=== PATIENT | female | born 1965 | race Caucasian/White ===

== ENCOUNTER 2018-07-14 16:30 | Emergency (ER) | payer MEDICAID ==
[~2018-07-14] VITALS: Ht 165.1 cm; Wt 90.0 kg
[~2018-07-14 16:30] MED LIST: ALBU18HF2; CYCL-1; HYDR-3972; INHA1EAC; LISI-600; METF500T PO
[2018-07-14 17:07] LABS: BASOPHILS % (AUTO) 0.5 % (0-1); EOSINOPHILS # (AUTO) 0.1 X10'3 (0-0.9); EOSINOPHILS % (AUTO) 2.4 % (0-6); HEMATOCRIT 40.8 % (35.0-45.0); HEMOGLOBIN 13.6 g/dl (12.0-16.0); LYMPHOCYTES # (AUTO) 1.9 X10'3 (1.1-4.8); LYMPHOCYTES % (AUTO) 35.1 % (21-51); MEAN CORPUSCULAR HEMOGLOBIN 31.5 PG (27.0-31.0); MEAN CORPUSCULAR HGB CONC 33.5 % (33.0-36.5); MEAN CORPUSCULAR VOLUME 94.1 FL (78-98); MEAN PLATELET VOLUME 8.7 FL (7.4-10.4); MONOCYTES # (AUTO) 0.5 X10'3 (0-0.9); MONOCYTES % (AUTO) 8.3 % (2-12); NEUTROPHILS % (AUTO) 53.7 % (42-75); PLATELET COUNT 135 X10'3 (140-440); RED BLOOD COUNT 4.33 X10'6 (4.20-5.60); RED CELL DISTRIBUTION WIDTH 13.8 % (11.5-14.5); WHITE BLOOD COUNT 5.5 X10'3 (4.5-11.0)
[2018-07-14 17:23] LABS: INR 1.1 INR; PARTIAL THROMBOPLASTIN TIME 27 SECONDS (22-32)
[2018-07-14 17:27] LABS: ALANINE AMINOTRANSFERASE 125 U/L (12-78); ALBUMIN/GLOBULIN RATIO 0.6 (1.1-1.5); ALKALINE PHOSPHATASE 196 IU/L (46-116); ANION GAP 6 (8-16); ASPARTATE AMINO TRANSFERASE 109 U/L (10-37); BILIRUBIN,TOTAL 0.5 MG/DL (0.1-1.0); BLOOD UREA NITROGEN 12 MG/DL (7-18); BUN/CREATININE RATIO 14.6 (6.6-38.0); CALCIUM 8.9 MG/DL (8.5-10.1); CHLORIDE 103 MMOL/L (99-107); CREATININE 0.82 MG/DL (0.40-0.90); GLUCOSE 212 MG/DL (70-104); POTASSIUM 3.4 MMOL/L (3.5-5.1); SODIUM 138 MMOL/L (135-145); TOTAL CARBON DIOXIDE 28.6 MMOL/L (24-32); TOTAL PROTEIN 8.3 G/DL (6.4-8.2); eGFR 74 ML/MIN
[2018-07-14 19:34] VITALS: BP 146/82
[2018-07-14 19:46] LABS: URINE AMPHETAMINE SCREEN POSITIVE (Neg); URINE BARBITUATE SCREEN NEGATIVE (Neg); URINE BENZODIAZEPINES SCREEN NEGATIVE (Neg); URINE CANNABINOID SCREEN NEGATIVE (Neg); URINE COCAINE SCREEN NEGATIVE (Neg); URINE METHADONE SCREEN NEGATIVE (Neg); URINE OPIATE SCREEN NEGATIVE (Neg); URINE PHENCYCLIDINE SCREEN NEGATIVE (Neg)
[2018-07-14] MEDS ORDERED: iohexol 350MG/ML 100ml bottle IV ONE (20:57)
[2018-07-14] MEDS ORDERED: MESSAGE TO NURSING PO NR (21:30)
[2018-07-14] MEDS ORDERED: ALBU8HFA PO (22:33)
== END 2018-07-14 23:02 | disposition home or self-care (01) ==
LOC: ER 16:31
DX: J40 Bronchitis, not specified as acute or chronic (principal); M21.372 Foot drop, left foot; I10 Essential (primary) hypertension; E11.9 Type 2 diabetes mellitus without complications; G89.29 Other chronic pain; Z90.49 Acquired absence of other specified parts of digestive tract; Z98.890 Other specified postprocedural states; Z88.0 Allergy status to penicillin; Z88.5 Allergy status to narcotic agent; Z88.8 Allergy status to other drugs, medicaments and biological substances; Z79.899 Other long term (current) drug therapy
CPT/HCPCS: 36415; 71045; 71275; 80053; 80305; 84484; 85025; 85379; 85610; 85730; 93005; 93971; 99284; Q9967

== ENCOUNTER 2018-12-01 23:12 | Emergency (ER) | payer MEDICAID ==
[~2018-12-01] VITALS: Ht 162.6 cm; Wt 82.3 kg
[2018-12-01 23:16] VITALS: BP 176/105
[2018-12-02 00:06] LABS: ALANINE AMINOTRANSFERASE 131 U/L (12-78); ALBUMIN 3.2 G/DL (3.4-5.0); ALBUMIN/GLOBULIN RATIO 0.7 (1.1-1.5); ALKALINE PHOSPHATASE 154 IU/L (46-116); ANION GAP 7 (8-16); ASPARTATE AMINO TRANSFERASE 109 U/L (10-37); BILIRUBIN,TOTAL 0.9 MG/DL (0.1-1.0); BLOOD UREA NITROGEN 15 MG/DL (7-18); BUN/CREATININE RATIO 16.7 (6.6-38.0); CALCIUM 9.5 MG/DL (8.5-10.1); CHLORIDE 102 MMOL/L (99-107); GLUCOSE 175 MG/DL (70-104); POTASSIUM 3.1 MMOL/L (3.5-5.1); SODIUM 139 MMOL/L (135-145); TOTAL CARBON DIOXIDE 30.2 MMOL/L (24-32); TOTAL PROTEIN 8.1 G/DL (6.4-8.2); eGFR 66 ML/MIN
[2018-12-02 01:57] LABS: LIPASE 99 U/L (73-393)
== END 2018-12-02 02:39 | disposition left against medical advice (07) ==
LOC: ER 23:13
DX: R11.2 Nausea with vomiting, unspecified (principal); R10.9 Unspecified abdominal pain; Z53.21 Procedure and treatment not carried out due to patient leaving prior to being seen by health care provider
CPT/HCPCS: 36415; 80053; 83690

== ENCOUNTER 2019-06-18 15:41 | Inpatient (IN) | payer MEDICAID ==
[~2019-06-18] VITALS: Ht 167.6 cm; Wt 100.3 kg
[2019-06-18] MEDS ORDERED: normal saline 1000ML IV soln IV ONE (16:25)
[2019-06-18] MEDS ORDERED: pantoprazole IV 80 MG in normal saline 100ml IV soln 100 ML IV ONE (16:25)
[2019-06-18] MEDS ORDERED: octreotide inj. 1,250 MCG in normal saline 250ml IV soln 250 ML IV SCH (16:25)
--- NOTE | 2019-06-18 16:28 | NUR ---
PT VERY DIFFICULT IVS, PICC RN PAGED, AT BEDSIDE AT THIS TIME ATTEMPTING TO PLACE PIV.
[2019-06-18] MEDS ORDERED: pantoprazole IV 40 MG in normal saline 100ml IV soln 100 ML IV ONE (16:37)
[2019-06-18 17:01] LABS: ALANINE AMINOTRANSFERASE 110 U/L (12-78); ALBUMIN 2.3 G/DL (3.4-5.0); ALBUMIN/GLOBULIN RATIO 0.6 (1.1-1.5); ALKALINE PHOSPHATASE 140 IU/L (46-116); ANION GAP 12 (8-16); ASPARTATE AMINO TRANSFERASE 116 U/L (10-37); BASOPHILS # (AUTO) 0.1 X10'3 (0-0.2); BASOPHILS % (AUTO) 1.2 % (0-1); BILIRUBIN,TOTAL 0.5 MG/DL (0.1-1.0); BLOOD UREA NITROGEN 18 MG/DL (7-18); BUN/CREATININE RATIO 13.1 (6.6-38.0); CALCIUM 8.5 MG/DL (8.5-10.1); CHLORIDE 107 MMOL/L (99-107); CREATININE 1.37 MG/DL (0.40-0.90); EOSINOPHILS # (AUTO) 0.3 X10'3 (0-0.9); EOSINOPHILS % (AUTO) 2.2 % (0-6); GLUCOSE 315 MG/DL (70-104); HEMATOCRIT 23.3 % (35.0-45.0); HEMOGLOBIN 7.8 g/dl (12.0-16.0); LIPASE 127 U/L (73-393); LYMPHOCYTES # (AUTO) 5.2 X10'3 (1.1-4.8); LYMPHOCYTES % (AUTO) 43.4 % (21-51); MEAN CORPUSCULAR HEMOGLOBIN 32.2 PG (27.0-31.0); MEAN CORPUSCULAR HGB CONC 33.4 g/dL (33.0-36.5); MEAN CORPUSCULAR VOLUME 96.4 FL (78-98); MEAN PLATELET VOLUME 9.6 FL (7.4-10.4); MONOCYTES # (AUTO) 0.9 X10'3 (0-0.9); MONOCYTES % (AUTO) 7.6 % (2-12); NEUTROPHILS # (AUTO) 5.5 X10'3 (1.8-7.7); NEUTROPHILS % (AUTO) 45.6 % (42-75); PLATELET COUNT 210 X10'3 (140-440); POTASSIUM 3.4 MMOL/L (3.5-5.1); RED BLOOD COUNT 2.42 X10'6 (4.20-5.60); RED CELL DISTRIBUTION WIDTH 14.1 % (11.5-14.5); SODIUM 141 MMOL/L (135-145); TOTAL CARBON DIOXIDE 21.9 MMOL/L (24-32); TOTAL PROTEIN 6.3 G/DL (6.4-8.2); eGFR 41 ML/MIN
[2019-06-18 17:02] LABS: ETHANOL < 0.010 GM/DL (0.0-0.010)
[2019-06-18 17:05] LABS: PARTIAL THROMBOPLASTIN TIME 20 SECONDS (22-32)
--- NOTE | 2019-06-18 17:12 | NUR ---
PICC RN AT BEDSIDE, STILL WORKING TO OBTAIN PIV. DR SMITH AWARE.
[2019-06-18] MEDS ORDERED: octreotide 100mcg/1 ml ampule IV ONE (17:50)
[2019-06-18] MEDS: octreotide inj. 1,250 MCG in normal saline 250ml IV soln 250 ML IV SCH (18:06)
[2019-06-18] MEDS ORDERED: Neutra Phos packet PO PRN (18:20)
[2019-06-18] MEDS ORDERED: octreotide inj. 1,250 MCG in normal saline 250ml IV soln 243.75 ML IV SCH (18:20)
[2019-06-18] MEDS ORDERED: acetaminophen 325mg tablet PO PRN (18:20)
[2019-06-18] MEDS ORDERED: magnesium 2GM in 50ml NS 50 ML IV PRN (18:20)
[2019-06-18] MEDS ORDERED: potassium Cl 20 mEq SR tablet PO PRN (18:20)
[2019-06-18] MEDS ORDERED: magnesium 4gm in 100ml NS 100 ML IV PRN (18:20)
[2019-06-18] MEDS ORDERED: sodium phosphate inj. 15 MMOL in dextrose 5%-water 150 ML IV PRN (18:20)
[2019-06-18] MEDS ORDERED: sodium phosphate inj. 30 MMOL in dextrose 5%-water 250 ML IV PRN (18:20)
[2019-06-18] MEDS ORDERED: magnesium Cl slow-release 64mg tablet PO PRN (18:20)
[2019-06-18] MEDS ORDERED: magnesium hydroxide 30ml (MOM) UD suspension PO PRN (18:20)
[2019-06-18 18:37] VITALS: BP 114/67
--- NOTE | 2019-06-18 18:38 | NUR ---
PER DR GIRON, PATIENT IS ONLY TO RECEIVE ONE UNIT OF BLOOD AT THIS TIME.
[2019-06-18] MEDS: normal saline 1000ml 1,000 ML IV SCH (18:46)
[2019-06-18 18:52] VITALS: BP 120/76
[2019-06-18] MEDS ORDERED: THIA100T66 PO (19:21)
[2019-06-18] MEDS ORDERED: FOLI0.4T2 PO (19:21)
[2019-06-18] MEDS ORDERED: MILK1CAP3 (19:21)
[2019-06-18] MEDS ORDERED: PROP10TA10 PO (19:21)
[2019-06-18] MEDS ORDERED: MULT-933 PO (19:21)
[2019-06-18] MEDS ORDERED: PANT-47 PO (19:21)
[2019-06-18] MEDS ORDERED: MILK150C2 PO (19:21)
[2019-06-18 19:38] LABS: COLOR,URINE YELLOW (Yellow); GLUCOSE, URINE 250 mg/dl (Neg); KETONES,URINE NEGATIVE (Neg); LEUKOCYTE ESTERASE ,URINE NEGATIVE (Neg); NITRITES, URINE NEGATIVE (Neg); OCCULT BLOOD,URINE LARGE (Neg); PROTEIN,URINE NEGATIVE (Neg); UROBILINOGEN,URINE 0.2 E.U/dL (0.2-1.0)
[2019-06-18] MEDS ORDERED: dextrose ORAL solution 15 GM/59 ML bottle PO PRN ×2 (19:40)
[2019-06-18] MEDS ORDERED: glucagon, human recombinant 1mg kit SUBCUT PRN (19:40)
[2019-06-18] MEDS ORDERED: dextrose 50%-water 50ml dispensing syringe IV PRN ×2 (19:40)
[2019-06-18] MEDS ORDERED: MESSAGE TO PHARMACY PO ONE (19:40)
[2019-06-18 19:44] LABS: CLARITY,URINE CLEAR (Clear); UA COLLECTION TYPE FOLEY CATH
[2019-06-18 19:45] LABS: URINE AMPHETAMINE SCREEN POSITIVE (Neg); URINE BARBITUATE SCREEN NEGATIVE (Neg); URINE BENZODIAZEPINES SCREEN NEGATIVE (Neg); URINE CANNABINOID SCREEN NEGATIVE (Neg); URINE COCAINE SCREEN NEGATIVE (Neg); URINE METHADONE SCREEN NEGATIVE (Neg); URINE OPIATE SCREEN NEGATIVE (Neg); URINE PHENCYCLIDINE SCREEN NEGATIVE (Neg)
[2019-06-18 19:46] VITALS: BP 121/68
[2019-06-18 19:50] LABS: BACTERIA,URINE FEW /HPF (Neg); HYALINE CASTS 0-3 /LPF (NEGATIVE); SQUAMOUS EPITHELIAL CELL,UR FEW /LPF (FEW); WBC,URINE 0-4 /HPF (0-4)
[2019-06-18] MEDS: ondansetron/PF 4mg/2ml inj IV PRN (20:01)
[2019-06-18 20:07] LABS: HEMOGLOBIN A1C 9.5 % (4.5-6.2)
--- NOTE | 2019-06-18 20:30 | NUR ---
RECEIVED REPORT FROM DANIKA REGALADO NO QUESTIONS OR CONCERNS AFTER ASSUMING CARE
[2019-06-18 21:00] VITALS: BP 113/57
[2019-06-18] MEDS ORDERED: pantoprazole 40MG/NS 100ML BAG 100 ML IV SCH (21:00)
[2019-06-18 21:38] LABS: BASOPHILS % (AUTO) 0.6 % (0-1); EOSINOPHILS % (AUTO) 0.6 % (0-6); HEMATOCRIT 22.7 % (35.0-45.0); HEMOGLOBIN 7.8 g/dl (12.0-16.0); LYMPHOCYTES # (AUTO) 1.4 X10'3 (1.1-4.8); LYMPHOCYTES % (AUTO) 26.5 % (21-51); MEAN CORPUSCULAR HEMOGLOBIN 31.9 PG (27.0-31.0); MEAN CORPUSCULAR HGB CONC 34.4 g/dL (33.0-36.5); MEAN CORPUSCULAR VOLUME 92.8 FL (78-98); MEAN PLATELET VOLUME 9.2 FL (7.4-10.4); MONOCYTES # (AUTO) 0.4 X10'3 (0-0.9); MONOCYTES % (AUTO) 6.6 % (2-12); NEUTROPHILS # (AUTO) 3.6 X10'3 (1.8-7.7); NEUTROPHILS % (AUTO) 65.7 % (42-75); PLATELET COUNT 103 X10'3 (140-440); RED BLOOD COUNT 2.44 X10'6 (4.20-5.60); RED CELL DISTRIBUTION WIDTH 15.9 % (11.5-14.5); WHITE BLOOD COUNT 5.4 X10'3 (4.5-11.0)
[2019-06-18] MEDS: pantoprazole 40MG/NS 100ML BAG 100 ML IV SCH (21:43)
[2019-06-18] MEDS: thiamine inj. 100 MG in normal saline 100ml IV soln 99 ML IV SCH (21:43)
[2019-06-18 22:00] VITALS: BP 113/57
[2019-06-18 22:24] VITALS: BP 135/67
[2019-06-18] MEDS: MVI, adult No.4 with vit. K 10 ML in dextrose 5% water 500ml 490 ML IV SCH ×2 (22:27)
--- NOTE | 2019-06-18 22:32 | NUR ---
PATIENT LYING ON LEFT SIDE IN BED COVERS ON EYES CLOSED RR EVEN UN LABORED NO OBSERVABLE S/S OF ACUTE STRESS OR BLEEDING AT THIS TIME WILL CONTINUE TO MONITOR
[2019-06-18] MEDS: insulin glargine (Lantus) pen - multi-dose SQ SCH (22:33)
[2019-06-19] VITALS (35 sets, daily range): BP systolic 82–139; BP diastolic 46–81
--- NOTE | 2019-06-19 00:33 | NUR ---
PATIENT MOVED BACK TO HER BACK SIDE COVERS ON EYES CLOSED RR EVEN UN LABORED NO OBSERVABLE S/S OF ACUTE STRESS OR BLEEDING AT THIS TIME WILL CONTINUE TO MONITOR
[2019-06-19] MEDS: pantoprazole 40MG/NS 100ML BAG 100 ML IV SCH ×5 (01:13→21:37)
[2019-06-19 01:42] LABS: MEAN CORPUSCULAR HEMOGLOBIN 32.1 PG (27.0-31.0); MEAN CORPUSCULAR HGB CONC 34.2 g/dL (33.0-36.5); MEAN CORPUSCULAR VOLUME 93.9 FL (78-98); MEAN PLATELET VOLUME 9.7 FL (7.4-10.4); PLATELET COUNT 96 X10'3 (140-440); RED BLOOD COUNT 2.19 X10'6 (4.20-5.60); RED CELL DISTRIBUTION WIDTH 16.2 % (11.5-14.5); WHITE BLOOD COUNT 5.2 X10'3 (4.5-11.0)
[2019-06-19 01:47] LABS: HEMATOCRIT 20.6 % (35.0-45.0)
--- NOTE | 2019-06-19 02:36 | NUR ---
PATIENT NOW ON HER RIGHT SIDE GAVE NEW WARMED BLANKETS PATIENTS EYES ARE CLOSED RR EVEN UN LABORED NO OBSERVABLE S/S OF ACUTE STRESS OR BLEEDING WILL CONTINUE TO MONITOR
--- NOTE | 2019-06-19 04:56 | NUR ---
PATIENT HAS NOW TURNED FROM RIGHT SIDE TO SUPINE COVERS ON RR EVEN UN LABORED NO OBSERVABLE S/S OF ACUTE STRESS OR BLEEDING AT THIS TIME WILL CONTINUE TO MONITOR
[2019-06-19 04:57] LABS: BASOPHILS % (AUTO) 0.7 % (0-1); EOSINOPHILS # (AUTO) 0.1 X10'3 (0-0.9); HEMATOCRIT 22.9 % (35.0-45.0); HEMOGLOBIN 7.9 g/dl (12.0-16.0); LYMPHOCYTES # (AUTO) 2.6 X10'3 (1.1-4.8); LYMPHOCYTES % (AUTO) 44.9 % (21-51); MEAN CORPUSCULAR HEMOGLOBIN 32.2 PG (27.0-31.0); MEAN CORPUSCULAR HGB CONC 34.5 g/dL (33.0-36.5); MEAN CORPUSCULAR VOLUME 93.3 FL (78-98); MEAN PLATELET VOLUME 9.3 FL (7.4-10.4); MONOCYTES # (AUTO) 0.5 X10'3 (0-0.9); MONOCYTES % (AUTO) 7.8 % (2-12); NEUTROPHILS # (AUTO) 2.6 X10'3 (1.8-7.7); NEUTROPHILS % (AUTO) 44.6 % (42-75); PLATELET COUNT 100 X10'3 (140-440); RED BLOOD COUNT 2.46 X10'6 (4.20-5.60); RED CELL DISTRIBUTION WIDTH 15.8 % (11.5-14.5); WHITE BLOOD COUNT 5.9 X10'3 (4.5-11.0)
[2019-06-19 05:13] LABS: ALANINE AMINOTRANSFERASE 95 U/L (12-78); ALBUMIN/GLOBULIN RATIO 0.6 (1.1-1.5); ALKALINE PHOSPHATASE 112 IU/L (46-116); ANION GAP 6 (8-16); ASPARTATE AMINO TRANSFERASE 98 U/L (10-37); BILIRUBIN,TOTAL 0.9 MG/DL (0.1-1.0); BLOOD UREA NITROGEN 15 MG/DL (7-18); BUN/CREATININE RATIO 13.3 (6.6-38.0); CALCIUM 7.1 MG/DL (8.5-10.1); CHLORIDE 110 MMOL/L (99-107); CREATININE 1.13 MG/DL (0.40-0.90); GLUCOSE 184 MG/DL (70-104); MAGNESIUM 1.3 MG/DL (1.5-2.4); PHOSPHORUS 3.4 MG/DL (2.3-4.5); POTASSIUM 3.8 MMOL/L (3.5-5.1); SODIUM 142 MMOL/L (135-145); TOTAL CARBON DIOXIDE 26.2 MMOL/L (24-32); TOTAL PROTEIN 5.5 G/DL (6.4-8.2); eGFR 51 ML/MIN
--- NOTE | 2019-06-19 06:28 | NUR ---
SBAR TO PREET REGALADO NO QUESTIONS OR CONCERNS AFTER ASSUMING CARE
[2019-06-19] MEDS: thiamine inj. 100 MG in normal saline 100ml IV soln 99 ML IV SCH (07:11)
[2019-06-19] MEDS: MVI, adult No.4 with vit. K 10 ML in dextrose 5% water 500ml 490 ML IV SCH ×2 (07:11)
[2019-06-19] MEDS: normal saline 1000ml 1,000 ML IV SCH ×2 (07:38→20:30)
[2019-06-19] MEDS ORDERED: thiamine inj. 100 MG, MVI, adult No.4 with vit. K 10 ML in dextrose 5% water 500ml 489 ML IV SCH ×3 (08:00)
[2019-06-19] MEDS: insulin Lispro (HumaLOG) vial - multi-dose SQ SCH ×3 (08:08→20:31)
[2019-06-19 10:48] LABS: BASOPHILS # (AUTO) 0.1 X10'3 (0-0.2); BASOPHILS % (AUTO) 0.9 % (0-1); EOSINOPHILS # (AUTO) 0.1 X10'3 (0-0.9); EOSINOPHILS % (AUTO) 2.1 % (0-6); HEMATOCRIT 25.4 % (35.0-45.0); HEMOGLOBIN 8.6 g/dl (12.0-16.0); LYMPHOCYTES # (AUTO) 2.6 X10'3 (1.1-4.8); LYMPHOCYTES % (AUTO) 38.4 % (21-51); MEAN CORPUSCULAR HEMOGLOBIN 31.7 PG (27.0-31.0); MEAN CORPUSCULAR VOLUME 93.5 FL (78-98); MEAN PLATELET VOLUME 9.2 FL (7.4-10.4); MONOCYTES # (AUTO) 0.5 X10'3 (0-0.9); MONOCYTES % (AUTO) 6.8 % (2-12); NEUTROPHILS # (AUTO) 3.6 X10'3 (1.8-7.7); NEUTROPHILS % (AUTO) 51.8 % (42-75); PLATELET COUNT 130 X10'3 (140-440); RED BLOOD COUNT 2.72 X10'6 (4.20-5.60); RED CELL DISTRIBUTION WIDTH 16.1 % (11.5-14.5); WHITE BLOOD COUNT 6.9 X10'3 (4.5-11.0)
[2019-06-19] MEDS ORDERED: fentaNYL/PF 50MCG/1 ML 2ML syringe ONE (12:02)
[2019-06-19] MEDS ORDERED: LIDOcaine Viscous 15ml cup ONE (12:02)
[2019-06-19] MEDS ORDERED: MIDAZolam 5mg/5ml vial ONE (12:02)
[2019-06-19] MEDS ORDERED: epiNEPHrine 0.1mg/ml 10ml syringe ONE (12:02)
[2019-06-19] MEDS ORDERED: ALBU17AE26 PO (12:36)
[2019-06-19] MEDS ORDERED: diphenhydrAMINE 50 mg/ml inj ONE (13:15)
--- NOTE | 2019-06-19 15:46 | NUR ---
DM consult, A1c 9.5; attempted bedside visit for DM education. Patient recently returned to room after EGD and very sleepy, not alert for education. Left written education in room with referral to outpatient DM education class on monday. Will return for verbal education. Addendum: 06/19/19 at 1546 by Ana Maria Holm RD Amended: Links added.
[2019-06-19 16:02] LABS: BASOPHILS % (AUTO) 0.8 % (0-1); EOSINOPHILS # (AUTO) 0.1 X10'3 (0-0.9); EOSINOPHILS % (AUTO) 2.2 % (0-6); HEMATOCRIT 24.4 % (35.0-45.0); HEMOGLOBIN 8.4 g/dl (12.0-16.0); LYMPHOCYTES # (AUTO) 2.5 X10'3 (1.1-4.8); LYMPHOCYTES % (AUTO) 43.3 % (21-51); MEAN CORPUSCULAR HEMOGLOBIN 31.9 PG (27.0-31.0); MEAN CORPUSCULAR HGB CONC 34.3 g/dL (33.0-36.5); MEAN CORPUSCULAR VOLUME 93.1 FL (78-98); MEAN PLATELET VOLUME 8.8 FL (7.4-10.4); MONOCYTES # (AUTO) 0.5 X10'3 (0-0.9); MONOCYTES % (AUTO) 8.8 % (2-12); NEUTROPHILS # (AUTO) 2.6 X10'3 (1.8-7.7); NEUTROPHILS % (AUTO) 44.9 % (42-75); PLATELET COUNT 115 X10'3 (140-440); RED BLOOD COUNT 2.62 X10'6 (4.20-5.60); WHITE BLOOD COUNT 5.8 X10'3 (4.5-11.0)
--- NOTE | 2019-06-19 18:27 | NUR ---
Patient in room CICU 2008. I have received report from PREET REGALADO and had the opportunity to ask questions and assume patient care.
[2019-06-19] MEDS: insulin glargine (Lantus) pen - multi-dose SQ SCH (20:32)
[2019-06-19 22:33] LABS: BASOPHILS # (AUTO) 0.1 X10'3 (0-0.2); EOSINOPHILS # (AUTO) 0.2 X10'3 (0-0.9); EOSINOPHILS % (AUTO) 2.9 % (0-6); HEMATOCRIT 24.4 % (35.0-45.0); HEMOGLOBIN 8.5 g/dl (12.0-16.0); LYMPHOCYTES # (AUTO) 2.4 X10'3 (1.1-4.8); LYMPHOCYTES % (AUTO) 40.4 % (21-51); MEAN CORPUSCULAR HGB CONC 34.8 g/dL (33.0-36.5); MEAN CORPUSCULAR VOLUME 91.9 FL (78-98); MEAN PLATELET VOLUME 8.7 FL (7.4-10.4); MONOCYTES # (AUTO) 0.5 X10'3 (0-0.9); MONOCYTES % (AUTO) 8.4 % (2-12); NEUTROPHILS # (AUTO) 2.8 X10'3 (1.8-7.7); NEUTROPHILS % (AUTO) 47.3 % (42-75); PLATELET COUNT 118 X10'3 (140-440); RED BLOOD COUNT 2.66 X10'6 (4.20-5.60); RED CELL DISTRIBUTION WIDTH 16.9 % (11.5-14.5)
--- NOTE | 2019-06-19 22:38 | NUR ---
reviewed pt labs, H/H stable
[2019-06-20] VITALS (25 sets, daily range): BP systolic 102–152; BP diastolic 47–77
[2019-06-20] MEDS: pantoprazole 40MG/NS 100ML BAG 100 ML IV SCH ×5 (02:20→19:14)
[2019-06-20 04:47] LABS: BASOPHILS % (AUTO) 0.8 % (0-1); EOSINOPHILS # (AUTO) 0.2 X10'3 (0-0.9); EOSINOPHILS % (AUTO) 2.4 % (0-6); HEMATOCRIT 23.7 % (35.0-45.0); HEMOGLOBIN 8.3 g/dl (12.0-16.0); LYMPHOCYTES # (AUTO) 2.2 X10'3 (1.1-4.8); LYMPHOCYTES % (AUTO) 35.9 % (21-51); MEAN CORPUSCULAR HEMOGLOBIN 32.5 PG (27.0-31.0); MEAN CORPUSCULAR HGB CONC 34.9 g/dL (33.0-36.5); MEAN CORPUSCULAR VOLUME 93.1 FL (78-98); MEAN PLATELET VOLUME 8.9 FL (7.4-10.4); MONOCYTES # (AUTO) 0.5 X10'3 (0-0.9); MONOCYTES % (AUTO) 8.6 % (2-12); NEUTROPHILS # (AUTO) 3.3 X10'3 (1.8-7.7); NEUTROPHILS % (AUTO) 52.3 % (42-75); PLATELET COUNT 116 X10'3 (140-440); RED BLOOD COUNT 2.55 X10'6 (4.20-5.60); RED CELL DISTRIBUTION WIDTH 16.1 % (11.5-14.5); WHITE BLOOD COUNT 6.3 X10'3 (4.5-11.0)
[2019-06-20 05:02] LABS: ANION GAP 5 (8-16); BLOOD UREA NITROGEN 20 MG/DL (7-18); CHLORIDE 111 MMOL/L (99-107); CREATININE 0.99 MG/DL (0.40-0.90); GLUCOSE 109 MG/DL (70-104); SODIUM 141 MMOL/L (135-145); TOTAL CARBON DIOXIDE 25.4 MMOL/L (24-32)
[2019-06-20 05:03] LABS: ALANINE AMINOTRANSFERASE 121 U/L (12-78); ALBUMIN 2.1 G/DL (3.4-5.0); ALBUMIN/GLOBULIN RATIO 0.6 (1.1-1.5); ALKALINE PHOSPHATASE 102 IU/L (46-116); ASPARTATE AMINO TRANSFERASE 148 U/L (10-37); BILIRUBIN,TOTAL 0.6 MG/DL (0.1-1.0); BUN/CREATININE RATIO 20.2 (6.6-38.0); CALCIUM 7.5 MG/DL (8.5-10.1); PHOSPHORUS 2.6 MG/DL (2.3-4.5); TOTAL PROTEIN 5.8 G/DL (6.4-8.2); eGFR 59 ML/MIN
--- NOTE | 2019-06-20 06:28 | NUR ---
Problems reprioritized. Patient report given, questions answered & plan of care reviewed with JORGE REGALADO.
--- NOTE | 2019-06-20 06:39 | NUR ---
Patient in room CICU 2008. I have received report from SABINE Bryan and had the opportunity to ask questions and assume patient care.
[2019-06-20] MEDS: MVI, adult No.4 with vit. K 10 ML in dextrose 5% water 500ml 490 ML IV SCH ×2 (08:38)
[2019-06-20] MEDS: thiamine inj. 100 MG in normal saline 100ml IV soln 99 ML IV SCH (08:38)
[2019-06-20] MEDS: normal saline 1000ml 1,000 ML IV SCH ×2 (10:18→19:06)
[2019-06-20] MEDS ORDERED: BUPIVAcaine/PF 2.5mg/ml (0.25%) 10ml vial ONE (12:52)
[2019-06-20] MEDS ORDERED: midazolam 2 mg/2 ml injection ONE (13:11)
[2019-06-20] MEDS ORDERED: fentaNYL /PF 50mcg/ml 5ml ampule ONE (13:12)
--- NOTE | 2019-06-20 13:16 | NUR ---
IR took pt. to TIP procedure. Addendum: 06/20/19 at 1625 by Kristina Coughlin RN pt. came back from procedure at 1535. pt. was alert and had complaints of pain and nausea. PRN zofran and morphine were given. called IR for order clarification.
[2019-06-20] MEDS ORDERED: LIDOcaine 1%/PF 5ML 10 MG/ML VIAL ONE (13:17)
[2019-06-20] MEDS ORDERED: iohexol 300mg/ml 100ml inj. ONE (13:17)
[2019-06-20] MEDS ORDERED: sevoflurane 250ml liquid IH ONE (13:26)
[2019-06-20] MEDS ORDERED: heparin 1,000 UNITS/NS 500ml 500 ML ONE ×2 (13:34→14:23)
[2019-06-20] MEDS ORDERED: ringers solution, lacted 1,000 ML IV SCH (14:07)
[2019-06-20] MEDS ORDERED: proCHLORperazine 10 MG/2 ml inj IV PRN (14:10)
[2019-06-20] MEDS ORDERED: morphine 4 MG/ML inj SYRINge IV PRN (14:10)
[2019-06-20] MEDS ORDERED: ondansetron/PF 4mg/2ml inj IV PRN (14:10)
[2019-06-20] MEDS ORDERED: meperidine/PF 25mg/ml syringe IV PRN ×3 (14:10)
[2019-06-20] MEDS ORDERED: clindamycin-Cleocin 900mg/D5W 50 ML IV ONE (14:33)
[2019-06-20] MEDS ORDERED: ePHEDrine 50MG/ML INJ. ONE (15:07)
[2019-06-20] MEDS ORDERED: rocuronium 10mg/ml inj IV ONE (15:07)
[2019-06-20] MEDS ORDERED: propofol inj 20 ML IV ONE (15:07)
[2019-06-20] MEDS ORDERED: glycopyrrolate 0.2mg/ml inj ONE (15:11)
[2019-06-20] MEDS ORDERED: neostigmine methylsulfate 1 MG/ML 10ml vial ONE (15:11)
[2019-06-20] MEDS: ondansetron/PF 4mg/2ml inj IV PRN (16:01)
--- NOTE | 2019-06-20 16:23 | NUR ---
Patient is s/p TIPS procedure. She was admitted with generalized weakness, dizziness, and was having bloody emesis at [facility]. Per ED documentation she was recently admitted to [facility] for GI complaints and black stools; per note patient not metformin; has not drank EtOH for seven days prior to admission. H/o heavy EtOH, meth, smoker, homeless, HTN, hepatitis C. Admitted with upper GI bleed, esophageal varices. Per MD note endoscopy revealed gastric varices. A1c 9.5; attempted bedside visit for DM education. Patient had recently returned to room after scope and very sleepy, not alert for education. Left written education in room with referral to outpatient DM education class on monday morning. Will return for verbal education. Will also provide written education for esophageal varices and liver disease with verbal review. Addendum: 06/20/19 at 1623 by Ana Maria Holm RD Amended: Links added.
--- NOTE | 2019-06-20 16:25 | NUR ---
Patient in room CICU 2008. I have received report from previous RN and had the opportunity to ask questions and assume patient care.
--- NOTE | 2019-06-20 16:25 | NUR ---
Problems reprioritized. Patient report given, questions answered & plan of care reviewed with SABINE Lucas.
[2019-06-20] MEDS: lactulose 20gm/30ml cup PO SCH (16:39)
[2019-06-20] MEDS: octreotide inj. 1,250 MCG in normal saline 250ml IV soln 250 ML IV SCH (17:40)
--- NOTE | 2019-06-20 18:09 | NUR ---
Problems reprioritized. Patient report given, questions answered & plan of care reviewed with oncoming shift.
[2019-06-20] MEDS ORDERED: lactulose 20gm/30ml cup PO PRN (18:20)
[2019-06-20] MEDS: morphine 4 MG/ML inj SYRINge IV PRN ×2 (18:30→21:18)
--- NOTE | 2019-06-20 18:36 | NUR ---
1830..Patient in room CICU 2008. I have received report from Paz REGALADO and had the opportunity to ask questions and assume patient care.
[2019-06-20] MEDS: insulin glargine (Lantus) pen - multi-dose SQ SCH (21:17)
--- NOTE | 2019-06-20 21:55 | NUR ---
2000..Assessment as noted, pt resting quietly, eyes closed, resp easy and nonlabored.
--- NOTE | 2019-06-20 21:56 | NUR ---
2129..Complains of general all over pain,03/09, morphine 4mg given with good effect, declines bath and hs care, no other changes noted.
[2019-06-21] VITALS (24 sets, daily range): BP systolic 92–122; BP diastolic 45–69
[2019-06-21] MEDS: pantoprazole 40MG/NS 100ML BAG 100 ML IV SCH ×4 (00:13→12:30)
--- NOTE | 2019-06-21 00:30 | NUR ---
0000..Resting quietly, no changes noted.
--- NOTE | 2019-06-21 04:31 | NUR ---
0400..No changes noted.
[2019-06-21] MEDS: morphine 4 MG/ML inj SYRINge IV PRN (04:37)
[2019-06-21 05:22] LABS: BASOPHILS # (AUTO) 0.1 X10'3 (0-0.2); BASOPHILS % (AUTO) 0.9 % (0-1); EOSINOPHILS # (AUTO) 0.2 X10'3 (0-0.9); EOSINOPHILS % (AUTO) 2.7 % (0-6); HEMATOCRIT 25.1 % (35.0-45.0); HEMOGLOBIN 8.7 g/dl (12.0-16.0); LYMPHOCYTES # (AUTO) 2.4 X10'3 (1.1-4.8); LYMPHOCYTES % (AUTO) 31.8 % (21-51); MEAN CORPUSCULAR HEMOGLOBIN 32.7 PG (27.0-31.0); MEAN CORPUSCULAR HGB CONC 34.8 g/dL (33.0-36.5); MEAN CORPUSCULAR VOLUME 94.1 FL (78-98); MEAN PLATELET VOLUME 8.1 FL (7.4-10.4); MONOCYTES # (AUTO) 0.6 X10'3 (0-0.9); MONOCYTES % (AUTO) 8.6 % (2-12); NEUTROPHILS # (AUTO) 4.2 X10'3 (1.8-7.7); PLATELET COUNT 152 X10'3 (140-440); RED BLOOD COUNT 2.67 X10'6 (4.20-5.60); RED CELL DISTRIBUTION WIDTH 16.3 % (11.5-14.5); WHITE BLOOD COUNT 7.5 X10'3 (4.5-11.0)
[2019-06-21 05:34] LABS: ALANINE AMINOTRANSFERASE 116 U/L (12-78); ALBUMIN/GLOBULIN RATIO 0.5 (1.1-1.5); ALKALINE PHOSPHATASE 117 IU/L (46-116); ANION GAP 6 (8-16); ASPARTATE AMINO TRANSFERASE 146 U/L (10-37); BILIRUBIN,TOTAL 0.7 MG/DL (0.1-1.0); BLOOD UREA NITROGEN 14 MG/DL (7-18); BUN/CREATININE RATIO 13.1 (6.6-38.0); CALCIUM 7.6 MG/DL (8.5-10.1); CHLORIDE 111 MMOL/L (99-107); CREATININE 1.07 MG/DL (0.40-0.90); GLUCOSE 134 MG/DL (70-104); MAGNESIUM 1.7 MG/DL (1.5-2.4); PHOSPHORUS 2.9 MG/DL (2.3-4.5); POTASSIUM 3.9 MMOL/L (3.5-5.1); SODIUM 141 MMOL/L (135-145); TOTAL CARBON DIOXIDE 24.3 MMOL/L (24-32); TOTAL PROTEIN 5.8 G/DL (6.4-8.2); eGFR 54 ML/MIN
--- NOTE | 2019-06-21 06:16 | NUR ---
0615..Problems reprioritized. Patient report given, questions answered & plan of care reviewed with Jerica REGALADO.
[2019-06-21] MEDS: lactulose 20gm/30ml cup PO SCH ×3 (08:11→15:30)
[2019-06-21] MEDS: thiamine inj. 100 MG in normal saline 100ml IV soln 99 ML IV SCH (08:11)
[2019-06-21] MEDS: MVI, adult No.4 with vit. K 10 ML in dextrose 5% water 500ml 490 ML IV SCH ×2 (08:12)
[2019-06-21] MEDS: insulin Lispro (HumaLOG) vial - multi-dose SQ SCH ×2 (08:44→13:14)
[2019-06-21] MEDS: normal saline 1000ml 1,000 ML IV SCH (12:58)
[2019-06-21] MEDS: ondansetron/PF 4mg/2ml inj IV PRN (15:30)
--- NOTE | 2019-06-21 16:39 | NUR ---
DM education follow up: patient sleep but able to have conversation; reports she feels the metformin was not working for her, she is trying to change clinics right now and get another MD. Encouraged patient to discuss DM medications with a primary care physician. Encouraged to atten DM education class on monday. She is on the clear liquid diet, she needs reinforcement of carb counting. Will provide reinforcement of carb counting when patient's diet is advanced and when she is more awake. Addendum: 06/21/19 at 1639 [address]m RD Amended: Links added.
[2019-06-21] MEDS: propranolol 10mg tablet PO SCH (19:39)
[2019-06-21] MEDS: albuterol 2.5 MG/3 ML nebule NEB SCH (20:04)
[2019-06-21] MEDS: insulin glargine (Lantus) pen - multi-dose SQ SCH (21:11)
[2019-06-22] VITALS (24 sets, daily range): BP systolic 102–160; BP diastolic 45–81
[2019-06-22] MEDS: lactulose 20gm/30ml cup PO SCH ×3 (00:03→17:08)
[2019-06-22] MEDS ORDERED: morphine 4 MG/ML inj SYRINge IV ONE ×2 (01:10→03:45)
[2019-06-22] MEDS: albuterol 2.5 MG/3 ML nebule NEB SCH ×4 (02:00→20:50)
[2019-06-22] MEDS: normal saline 1000ml 1,000 ML IV SCH ×2 (03:12→16:19)
[2019-06-22] MEDS ORDERED: simethicone 80mg chew tab PO ONE (03:45)
[2019-06-22] MEDS: ondansetron/PF 4mg/2ml inj IV PRN ×3 (03:59→18:33)
[2019-06-22 06:37] LABS: ALANINE AMINOTRANSFERASE 125 U/L (12-78); ALBUMIN/GLOBULIN RATIO 0.5 (1.1-1.5); ALKALINE PHOSPHATASE 127 IU/L (46-116); ANION GAP 7 (8-16); ASPARTATE AMINO TRANSFERASE 166 U/L (10-37); BILIRUBIN,TOTAL 1.1 MG/DL (0.1-1.0); BLOOD UREA NITROGEN 10 MG/DL (7-18); BUN/CREATININE RATIO 10.6 (6.6-38.0); CALCIUM 7.6 MG/DL (8.5-10.1); CHLORIDE 110 MMOL/L (99-107); CREATININE 0.94 MG/DL (0.40-0.90); GLUCOSE 172 MG/DL (70-104); MAGNESIUM 1.5 MG/DL (1.5-2.4); PHOSPHORUS 2.6 MG/DL (2.3-4.5); POTASSIUM 3.6 MMOL/L (3.5-5.1); SODIUM 139 MMOL/L (135-145); TOTAL CARBON DIOXIDE 22.4 MMOL/L (24-32); TOTAL PROTEIN 5.8 G/DL (6.4-8.2); eGFR 63 ML/MIN
[2019-06-22 07:45] LABS: BASOPHILS # (AUTO) 0.1 X10'3 (0-0.2); BASOPHILS % (AUTO) 0.8 % (0-1); EOSINOPHILS # (AUTO) 0.2 X10'3 (0-0.9); EOSINOPHILS % (AUTO) 1.7 % (0-6); HEMATOCRIT 27.6 % (35.0-45.0); HEMOGLOBIN 9.5 g/dl (12.0-16.0); LYMPHOCYTES # (AUTO) 2.6 X10'3 (1.1-4.8); LYMPHOCYTES % (AUTO) 22.8 % (21-51); MEAN CORPUSCULAR HEMOGLOBIN 31.9 PG (27.0-31.0); MEAN CORPUSCULAR HGB CONC 34.3 g/dL (33.0-36.5); MEAN PLATELET VOLUME 7.8 FL (7.4-10.4); MONOCYTES # (AUTO) 1.1 X10'3 (0-0.9); MONOCYTES % (AUTO) 9.8 % (2-12); NEUTROPHILS # (AUTO) 7.5 X10'3 (1.8-7.7); NEUTROPHILS % (AUTO) 64.9 % (42-75); PLATELET COUNT 182 X10'3 (140-440); RED BLOOD COUNT 2.97 X10'6 (4.20-5.60); RED CELL DISTRIBUTION WIDTH 16.4 % (11.5-14.5); WHITE BLOOD COUNT 11.5 X10'3 (4.5-11.0)
[2019-06-22] MEDS: propranolol 10mg tablet PO SCH ×2 (07:48→19:49)
[2019-06-22] MEDS: pantoprazole 40mg Tablet.DR PO SCH (07:48)
[2019-06-22] MEDS: folic acid 1mg tablet PO SCH (07:48)
[2019-06-22] MEDS: thiamine 100mg tablet PO SCH (07:49)
[2019-06-22] MEDS: multivitamins, therapeutics tablet PO SCH (07:49)
[2019-06-22] MEDS ORDERED: non-formulary drug (Multivitamin (One Daily Multivitamin) 1 TAB) PO SCH (08:00)
[2019-06-22] MEDS ORDERED: MILK THISTLE 150 MG PO SCH (08:00)
[2019-06-22] MEDS: insulin Lispro (HumaLOG) vial - multi-dose SQ SCH ×3 (08:49→18:11)
--- NOTE | 2019-06-22 17:50 | NUR ---
Pt with increasing lethargy throughout day. Pt remains arousable to voice, AxOX4, and able to follow commands. However spontaneously arouses crying in RMidQ pain. Vital signs remain stable HR 70s, SpO2 93, BPs 130s/80s. Patient inconsolable and to continues to repeat "help me." Pain medicine offered but refused, repositioned to side of bed, zofran PRN given, and water offered. MD aware of right quadrant pain. Soft to touch, tender to light palpation, bowel sounds noted, and patient passing gas frequently. No BM on shift, scheduled lactulose given q8h. Will continue to monitor closely.
--- NOTE | 2019-06-22 18:15 | NUR ---
Patient in room CICU 2008. I have received report and had the opportunity to ask questions and assume patient care. Patient sitting up on side of bed moaning, complaining of nausea Zofran IV push given by day shift RN, IV fluids infusing per provider orders. Patient alter and orientated but dose take stimulation to get verbal response. Will continue to monitor.
[2019-06-22] MEDS: metFORMIN 500mg tablet PO SCH (20:00)
[2019-06-22] MEDS: proCHLORperazine 10 MG/2 ml inj IV PRN (20:43)
[2019-06-22] MEDS: insulin glargine (Lantus) pen - multi-dose SQ SCH (20:59)
[2019-06-23] VITALS (19 sets, daily range): BP systolic 96–140; BP diastolic 46–73
[2019-06-23] MEDS: albuterol 2.5 MG/3 ML nebule NEB SCH ×4 (02:00→20:00)
--- NOTE | 2019-06-23 03:31 | NUR ---
Patient in room CICU 2008. I have received report from Howard REGALADO and had the opportunity to ask questions and assume patient care.
[2019-06-23] MEDS: normal saline 1000ml 1,000 ML IV SCH (04:28)
[2019-06-23 04:29] LABS: BASOPHILS # (AUTO) 0.1 X10'3 (0-0.2); BASOPHILS % (AUTO) 0.7 % (0-1); EOSINOPHILS # (AUTO) 0.1 X10'3 (0-0.9); EOSINOPHILS % (AUTO) 0.8 % (0-6); HEMATOCRIT 26.4 % (35.0-45.0); LYMPHOCYTES # (AUTO) 3.7 X10'3 (1.1-4.8); LYMPHOCYTES % (AUTO) 28.2 % (21-51); MEAN CORPUSCULAR HGB CONC 34.1 g/dL (33.0-36.5); MEAN CORPUSCULAR VOLUME 93.7 FL (78-98); MEAN PLATELET VOLUME 7.9 FL (7.4-10.4); MONOCYTES # (AUTO) 1.3 X10'3 (0-0.9); MONOCYTES % (AUTO) 9.7 % (2-12); NEUTROPHILS % (AUTO) 60.6 % (42-75); PLATELET COUNT 189 X10'3 (140-440); RED BLOOD COUNT 2.81 X10'6 (4.20-5.60); RED CELL DISTRIBUTION WIDTH 16.8 % (11.5-14.5); WHITE BLOOD COUNT 13.1 X10'3 (4.5-11.0)
[2019-06-23 04:37] LABS: ALANINE AMINOTRANSFERASE 110 U/L (12-78); ALBUMIN/GLOBULIN RATIO 0.5 (1.1-1.5); ALKALINE PHOSPHATASE 122 IU/L (46-116); ANION GAP 8 (8-16); ASPARTATE AMINO TRANSFERASE 131 U/L (10-37); BILIRUBIN,TOTAL 1.2 MG/DL (0.1-1.0); BLOOD UREA NITROGEN 11 MG/DL (7-18); BUN/CREATININE RATIO 12.1 (6.6-38.0); CALCIUM 7.7 MG/DL (8.5-10.1); CHLORIDE 109 MMOL/L (99-107); CREATININE 0.91 MG/DL (0.40-0.90); GLUCOSE 139 MG/DL (70-104); MAGNESIUM 1.5 MG/DL (1.5-2.4); PHOSPHORUS 2.5 MG/DL (2.3-4.5); POTASSIUM 3.4 MMOL/L (3.5-5.1); SODIUM 140 MMOL/L (135-145); TOTAL CARBON DIOXIDE 23.2 MMOL/L (24-32); TOTAL PROTEIN 5.8 G/DL (6.4-8.2); eGFR 65 ML/MIN
--- NOTE | 2019-06-23 06:22 | NUR ---
Problems reprioritized. Patient report given, questions answered & plan of care reviewed with Gilberto REGALADO.
--- NOTE | 2019-06-23 06:22 | NUR ---
Student documentation: I have reviewed and agree with all interventions, assessments performed and documented by Shauna. Student Medication Administration: For this medication-pass time frame, all medication were reviewed, dispensed, administered and documented per hospital policy by Shauna.
--- NOTE | 2019-06-23 06:30 | NUR ---
Patient in room CICU 2008. I have received report from SABINE Robertson and had the opportunity to ask questions and assume patient care.
[2019-06-23] MEDS: pantoprazole 40mg Tablet.DR PO SCH (07:51)
[2019-06-23] MEDS: potassium Cl 20 mEq SR tablet PO PRN ×3 (07:51→21:20)
[2019-06-23] MEDS: propranolol 10mg tablet PO SCH ×2 (07:51→21:22)
[2019-06-23] MEDS: folic acid 1mg tablet PO SCH (07:51)
[2019-06-23] MEDS: thiamine 100mg tablet PO SCH (07:51)
[2019-06-23] MEDS: lactulose 20gm/30ml cup PO SCH ×3 (07:51→15:01)
[2019-06-23] MEDS: multivitamins, therapeutics tablet PO SCH (07:51)
[2019-06-23] MEDS: metFORMIN 500mg tablet PO SCH (08:00)
[2019-06-23] MEDS: insulin Lispro (HumaLOG) vial - multi-dose SQ SCH ×3 (08:28→18:52)
[2019-06-23] MEDS: ondansetron/PF 4mg/2ml inj IV PRN (09:01)
[2019-06-23] MEDS: proCHLORperazine 10 MG/2 ml inj IV PRN (09:03)
--- NOTE | 2019-06-23 09:05 | NUR ---
patient nauseated zofran given with no relief, compazine given, patient feels better but drowsy.
--- NOTE | 2019-06-23 15:30 | NUR ---
phone call made to Luli Vera, telephone order to D/c metformin.
--- NOTE | 2019-06-23 15:35 | NUR ---
Problems reprioritized. Patient report given, questions answered & plan of care reviewed with SABINE Rodgers.
--- NOTE | 2019-06-23 15:55 | NUR ---
Patient arrived to the floor. VSS. no complaints. Will pass on to primary RN.
--- NOTE | 2019-06-23 15:56 | NUR ---
Initial: Pt admit w/ ALOC and hx heavy etoh, hep C, DX cirrhosis. PO 0-25% avg clear liquids s/p TIPS not meeting needs. Pt remains sleepy and slow to respond though AOx4 per EMR. Pt seen by RD for written/verbal cirrhosis MNT and verbal DM reinforcement eds; pt intentionally awake and responsive but "fell asleep" after ed sbject matter was mentioned by RD. RD contact information and eds left at bedside. LBM 06/23 on lactulose. Will continue to monitor. Rec: 1. advance diet per MD to carb controlled/heart healthy 2. MVI/thiamin/folic for etoh per MD 3. routine bowel care 4. weekly wts Addendum: 06/23/19 at [address] Amended: Links added.
--- NOTE | 2019-06-23 18:19 | NUR ---
Problems reprioritized. Patient report given, questions answered & plan of care reviewed with Sheldon REGALADO.
--- NOTE | 2019-06-23 18:38 | NUR ---
Patient in room CHING 349B. I have received report from SABINE Rodgers and had the opportunity to ask questions and assume patient care. Patient awake for bedside report, on room air and is stable at this time. Will continue to monitor closely.
[2019-06-23] MEDS: insulin glargine (Lantus) pen - multi-dose SQ SCH (20:36)
--- NOTE | 2019-06-24 00:58 | NUR ---
Patient refused 0000 dose of lactulose. Patient stated she is "having some loose stools and doesn't want it." Educated patient on importance of decreasing ammonia levels. Patient ammonia levels slightly elevated at 44. No acute confusion at this time. Will continue to revisit education topic and monitor closely.
[2019-06-24] MEDS: albuterol 2.5 MG/3 ML nebule NEB SCH ×4 (02:00→19:49)
--- NOTE | 2019-06-24 06:09 | NUR ---
Problems reprioritized. Patient report given, questions answered & plan of care reviewed with SABINE Roman and SABINE Ward.
[2019-06-24 06:17] LABS: BASOPHILS # (AUTO) 0.1 X10'3 (0-0.2); BASOPHILS % (AUTO) 0.7 % (0-1); EOSINOPHILS # (AUTO) 0.3 X10'3 (0-0.9); EOSINOPHILS % (AUTO) 2.7 % (0-6); HEMATOCRIT 29.2 % (35.0-45.0); HEMOGLOBIN 9.9 g/dl (12.0-16.0); LYMPHOCYTES # (AUTO) 4.3 X10'3 (1.1-4.8); LYMPHOCYTES % (AUTO) 39.1 % (21-51); MEAN CORPUSCULAR HEMOGLOBIN 31.6 PG (27.0-31.0); MEAN CORPUSCULAR VOLUME 92.8 FL (78-98); MEAN PLATELET VOLUME 7.9 FL (7.4-10.4); MONOCYTES # (AUTO) 0.8 X10'3 (0-0.9); MONOCYTES % (AUTO) 7.7 % (2-12); NEUTROPHILS # (AUTO) 5.5 X10'3 (1.8-7.7); NEUTROPHILS % (AUTO) 49.8 % (42-75); PLATELET COUNT 209 X10'3 (140-440); RED BLOOD COUNT 3.14 X10'6 (4.20-5.60); RED CELL DISTRIBUTION WIDTH 17.3 % (11.5-14.5)
[2019-06-24 06:36] LABS: ALANINE AMINOTRANSFERASE 94 U/L (12-78); ALBUMIN 2.2 G/DL (3.4-5.0); ALBUMIN/GLOBULIN RATIO 0.6 (1.1-1.5); ALKALINE PHOSPHATASE 127 IU/L (46-116); ANION GAP 9 (8-16); ASPARTATE AMINO TRANSFERASE 94 U/L (10-37); BLOOD UREA NITROGEN 11 MG/DL (7-18); BUN/CREATININE RATIO 10.9 (6.6-38.0); CHLORIDE 107 MMOL/L (99-107); CREATININE 1.01 MG/DL (0.40-0.90); GLUCOSE 107 MG/DL (70-104); MAGNESIUM 1.4 MG/DL (1.5-2.4); PHOSPHORUS 2.1 MG/DL (2.3-4.5); POTASSIUM 3.7 MMOL/L (3.5-5.1); SODIUM 140 MMOL/L (135-145); TOTAL CARBON DIOXIDE 24.2 MMOL/L (24-32); TOTAL PROTEIN 6.2 G/DL (6.4-8.2); eGFR 58 ML/MIN
[2019-06-24 08:00] VITALS: BP 120/64
[2019-06-24] MEDS: lactulose 20gm/30ml cup PO SCH ×5 (08:00→23:49)
[2019-06-24] MEDS: insulin Lispro (HumaLOG) vial - multi-dose SQ SCH ×3 (08:18→18:33)
[2019-06-24] MEDS: pantoprazole 40mg Tablet.DR PO SCH (08:20)
[2019-06-24] MEDS: propranolol 10mg tablet PO SCH ×2 (08:20→19:58)
[2019-06-24] MEDS: thiamine 100mg tablet PO SCH (08:20)
[2019-06-24] MEDS: multivitamins, therapeutics tablet PO SCH (08:20)
[2019-06-24] MEDS: folic acid 1mg tablet PO SCH (08:20)
--- NOTE | 2019-06-24 11:12 | NUR ---
Student documentation: I have reviewed and agree with all interventions, assessments performed and documented by Anai MARC from [facility]. Student Medication Administration: For this medication-pass time frame, all medication were reviewed, dispensed, administered and documented per hospital policy by Anai MARC from [facility].
--- NOTE | 2019-06-24 18:52 | NUR ---
Patient in room CHING 348. I have received report from SABINE Roman and had the opportunity to ask questions and assume patient care. Addendum: 06/24/19 at 1853 by Janet Kang RN Amended: Links added.
[2019-06-24] MEDS ORDERED: HYDROcodone/acetaminophen 5mg/325mg tablet PO PRN (19:10)
[2019-06-24 19:44] VITALS: BP 127/55
[2019-06-24] MEDS: insulin glargine (Lantus) pen - multi-dose SQ SCH (21:17)
[2019-06-24 23:54] VITALS: BP 120/63
[2019-06-25] MEDS: albuterol 2.5 MG/3 ML nebule NEB SCH ×2 (02:00→07:21)
[2019-06-25 05:01] LABS: BASOPHILS # (AUTO) 0.1 X10'3 (0-0.2); BASOPHILS % (AUTO) 0.9 % (0-1); EOSINOPHILS # (AUTO) 0.3 X10'3 (0-0.9); EOSINOPHILS % (AUTO) 3.4 % (0-6); HEMATOCRIT 24.6 % (35.0-45.0); HEMOGLOBIN 8.5 g/dl (12.0-16.0); LYMPHOCYTES # (AUTO) 3.8 X10'3 (1.1-4.8); LYMPHOCYTES % (AUTO) 42.2 % (21-51); MEAN CORPUSCULAR HEMOGLOBIN 32.7 PG (27.0-31.0); MEAN CORPUSCULAR HGB CONC 34.5 g/dL (33.0-36.5); MEAN CORPUSCULAR VOLUME 94.9 FL (78-98); MEAN PLATELET VOLUME 7.9 FL (7.4-10.4); MONOCYTES # (AUTO) 0.9 X10'3 (0-0.9); MONOCYTES % (AUTO) 10.5 % (2-12); NEUTROPHILS # (AUTO) 3.8 X10'3 (1.8-7.7); PLATELET COUNT 185 X10'3 (140-440); RED BLOOD COUNT 2.59 X10'6 (4.20-5.60); RED CELL DISTRIBUTION WIDTH 17.6 % (11.5-14.5); WHITE BLOOD COUNT 8.9 X10'3 (4.5-11.0)
[2019-06-25 05:32] LABS: ALANINE AMINOTRANSFERASE 78 U/L (12-78); ALBUMIN 2.1 G/DL (3.4-5.0); ALBUMIN/GLOBULIN RATIO 0.5 (1.1-1.5); ALKALINE PHOSPHATASE 114 IU/L (46-116); ANION GAP 8 (8-16); ASPARTATE AMINO TRANSFERASE 77 U/L (10-37); BILIRUBIN,TOTAL 0.8 MG/DL (0.1-1.0); BLOOD UREA NITROGEN 6 MG/DL (7-18); BUN/CREATININE RATIO 6.3 (6.6-38.0); CALCIUM 8.2 MG/DL (8.5-10.1); CHLORIDE 109 MMOL/L (99-107); CREATININE 0.95 MG/DL (0.40-0.90); GLUCOSE 91 MG/DL (70-104); MAGNESIUM 1.4 MG/DL (1.5-2.4); POTASSIUM 3.3 MMOL/L (3.5-5.1); SODIUM 143 MMOL/L (135-145); TOTAL CARBON DIOXIDE 25.6 MMOL/L (24-32); eGFR 62 ML/MIN
[2019-06-25 07:00] VITALS: BP 105/62
[2019-06-25] MEDS: lactulose 20gm/30ml cup PO SCH ×2 (08:00→08:44)
[2019-06-25] MEDS: pantoprazole 40mg Tablet.DR PO SCH (08:44)
[2019-06-25] MEDS: folic acid 1mg tablet PO SCH (08:44)
[2019-06-25] MEDS: multivitamins, therapeutics tablet PO SCH (08:44)
[2019-06-25] MEDS: propranolol 10mg tablet PO SCH (08:44)
[2019-06-25] MEDS: thiamine 100mg tablet PO SCH (08:44)
[2019-06-25] MEDS ORDERED: LACT10SO32 PO (08:44)
[2019-06-25] MEDS: potassium Cl 20 mEq SR tablet PO PRN (08:54)
[2019-06-25] MEDS: insulin Lispro (HumaLOG) vial - multi-dose SQ SCH (09:51)
[2019-06-25 11:00] VITALS: BP 143/73
== END 2019-06-25 13:44 | disposition home or self-care (01) | DRG 169 ==
LOC: ER 15:42 → ED HOLD 18:35 → CICU 2S 20:42 → SUR 3N 06-23 15:51
PROVIDERS: ADMIT Internal Medicine Critical Care Medicine; ATTEND Internal Medicine Critical Care Medicine
PROC: 30233N1 Transfusion of Nonautologous Red Blood Cells into Peripheral Vein, Percutaneous Approach (ICD-10-PCS; 2019-06-18)
PROC: 0DJ08ZZ Inspection of Upper Intestinal Tract, Via Natural or Artificial Opening Endoscopic (ICD-10-PCS; 2019-06-19)
PROC: 06183J4 Bypass Portal Vein to Hepatic Vein with Synthetic Substitute, Percutaneous Approach (ICD-10-PCS; principal; 2019-06-20 13:26)
DX: I86.4 Gastric varices (principal); I85.01 Esophageal varices with bleeding; G93.40 Encephalopathy, unspecified; I95.9 Hypotension, unspecified; D64.9 Anemia, unspecified; K74.60 Unspecified cirrhosis of liver; E11.9 Type 2 diabetes mellitus without complications; B19.20 Unspecified viral hepatitis C without hepatic coma; F32.9 Major depressive disorder, single episode, unspecified; F41.9 Anxiety disorder, unspecified; G89.29 Other chronic pain; M19.90 Unspecified osteoarthritis, unspecified site; F10.10 Alcohol abuse, uncomplicated; F15.10 Other stimulant abuse, uncomplicated; M54.9 Dorsalgia, unspecified; R55 Syncope and collapse; F17.210 Nicotine dependence, cigarettes, uncomplicated; I10 Essential (primary) hypertension; J45.909 Unspecified asthma, uncomplicated; Z79.84 Long term (current) use of oral hypoglycemic drugs; Z82.41 Family history of sudden cardiac death; Z82.49 Family history of ischemic heart disease and other diseases of the circulatory system; Z83.3 Family history of diabetes mellitus; Z91.19 Patient's noncompliance with other medical treatment and regimen; Z88.0 Allergy status to penicillin; Z88.5 Allergy status to narcotic agent; Z88.8 Allergy status to other drugs, medicaments and biological substances; Z79.899 Other long term (current) drug therapy
CPT/HCPCS: 36415; 36430; 37182; 43235; 71045; 80053; 80305; 80320; 81001; 82140; 82150; 82948; 83036; 83605; 83690; 83735; 84100; 84145; 84443; 85025; 85027; 85610; 85730; 86885; 86900; 86901; 86920; 87081; 93005; 93975; 94640; 94760; 96365; 96375; 97116; 97161; 97530; 99152; 99291; A4618; C1725; C1769; C1874; C1894; C2628; C9113; G0378; J0171; J0780; J1200; J1644; J1815; J2250; J2270; J2354; J2405; J2704; J2710; J3010; J3411; J3475; J3490; J7050; J7060; J7120; P9016; Q9967

== ENCOUNTER 2019-07-31 16:53 | Emergency (ER) | payer MEDICAID ==
[~2019-07-31] VITALS: Ht 165.1 cm; Wt 90.9 kg
[~2019-07-31 16:53] MED LIST changes: +ALBU17AE26 PO; -ALBU18HF2; -CYCL-1; +FOLI0.4T2 PO; -HYDR-3972; -INHA1EAC; +LACT10SO32 PO; -LISI-600; +MILK150C2 PO; +MULT-933 PO; +PANT-47 PO; +PROP10TA10 PO; +THIA100T66 PO
[2019-07-31] MEDS ORDERED: triamcinolone acetonide 40mg/ml inj IM ONE (17:40)
[2019-07-31] MEDS ORDERED: ketorolac trometh. 30mg/ml inj. IM ONE (17:45)
[2019-07-31] MEDS ORDERED: orphenadrine citrate 60mg/2ml inj. IM ONE (17:45)
[2019-07-31] MEDS ORDERED: traMADol 50MG tablet PO ONE (17:45)
[2019-07-31] MEDS ORDERED: ORPH100T2 PO (17:48)
[2019-07-31] MEDS ORDERED: TRAM100T34 PO (17:48)
[2019-07-31 18:29] VITALS: BP 119/63
== END 2019-07-31 18:42 | disposition home or self-care (01) ==
LOC: ER 16:54
DX: M54.41 Lumbago with sciatica, right side (principal); R32 Unspecified urinary incontinence; J45.909 Unspecified asthma, uncomplicated; E11.9 Type 2 diabetes mellitus without complications; G89.29 Other chronic pain; F41.9 Anxiety disorder, unspecified; Z90.49 Acquired absence of other specified parts of digestive tract; Z98.890 Other specified postprocedural states; Z79.84 Long term (current) use of oral hypoglycemic drugs; Z87.891 Personal history of nicotine dependence; Z88.0 Allergy status to penicillin; Z88.5 Allergy status to narcotic agent; Z88.8 Allergy status to other drugs, medicaments and biological substances; Z79.899 Other long term (current) drug therapy
CPT/HCPCS: 96372; 99283; J1885; J2360; J3301

== ENCOUNTER 2019-08-01 18:18 | Emergency (ER) | payer MEDICAID ==
[~2019-08-01] VITALS: Ht 165.1 cm; Wt 90.9 kg
[~2019-08-01 18:18] MED LIST changes: +ORPH100T2 PO; +TRAM100T34 PO
[2019-08-01] MEDS ORDERED: LIDOcaine 1% W/epiNEPHrine 1:200,000 10ml vial IJ ONE (19:00)
[2019-08-01] MEDS ORDERED: morphine 4 MG/ML inj SYRINge IM ONE (19:00)
[2019-08-01] MEDS ORDERED: ondansetron 4mg rapidly disintigrating tab PO ONE (19:00)
[2019-08-01] MEDS ORDERED: normal saline 1000ML IV soln IV ONE (19:55)
[2019-08-01] MEDS ORDERED: clindamycin phosphate inj 600 MG in normal saline 50ml IV soln 50 ML IV ONE (19:55)
[2019-08-01] MEDS ORDERED: clindamycin phosphate inj 600 MG in dextrose 5%-water 50ml 50 ML IV ONE (20:00)
[2019-08-01 20:38] LABS: BASOPHILS # (AUTO) 0.1 X10'3 (0-0.2); BASOPHILS % (AUTO) 0.9 % (0-1); EOSINOPHILS # (AUTO) 0.1 X10'3 (0-0.9); EOSINOPHILS % (AUTO) 1.5 % (0-6); HEMATOCRIT 25.9 % (35.0-45.0); LYMPHOCYTES # (AUTO) 1.8 X10'3 (1.1-4.8); LYMPHOCYTES % (AUTO) 23.6 % (21-51); MEAN CORPUSCULAR HEMOGLOBIN 30.8 PG (27.0-31.0); MEAN CORPUSCULAR HGB CONC 34.6 g/dL (33.0-36.5); MEAN CORPUSCULAR VOLUME 89.1 FL (78-98); MEAN PLATELET VOLUME 7.5 FL (7.4-10.4); MONOCYTES # (AUTO) 1.2 X10'3 (0-0.9); MONOCYTES % (AUTO) 15.1 % (2-12); NEUTROPHILS # (AUTO) 4.5 X10'3 (1.8-7.7); NEUTROPHILS % (AUTO) 58.9 % (42-75); PLATELET COUNT 185 X10'3 (140-440); RED CELL DISTRIBUTION WIDTH 14.9 % (11.5-14.5); WHITE BLOOD COUNT 7.6 X10'3 (4.5-11.0)
[2019-08-01 20:57] LABS: ALANINE AMINOTRANSFERASE 41 U/L (12-78); ALBUMIN 2.4 G/DL (3.4-5.0); ALBUMIN/GLOBULIN RATIO 0.5 (1.1-1.5); ALKALINE PHOSPHATASE 177 IU/L (46-116); ANION GAP 6 (8-16); ASPARTATE AMINO TRANSFERASE 57 U/L (10-37); BILIRUBIN,TOTAL 0.5 MG/DL (0.1-1.0); BLOOD UREA NITROGEN 15 MG/DL (7-18); CALCIUM 8.8 MG/DL (8.5-10.1); CHLORIDE 103 MMOL/L (99-107); CREATININE 1.15 MG/DL (0.40-0.90); GLUCOSE 264 MG/DL (70-104); MAGNESIUM 1.8 MG/DL (1.5-2.4); POTASSIUM 3.4 MMOL/L (3.5-5.1); SODIUM 138 MMOL/L (135-145); TOTAL CARBON DIOXIDE 28.8 MMOL/L (24-32); TOTAL PROTEIN 7.5 G/DL (6.4-8.2); eGFR 50 ML/MIN
[2019-08-01 21:06] LABS: PARTIAL THROMBOPLASTIN TIME 28 SECONDS (22-32)
[2019-08-01 21:34] LABS: CLARITY,URINE CLEAR (Clear); COLOR,URINE YELLOW (Yellow); GLUCOSE, URINE 100 mg/dl (Neg); KETONES,URINE NEGATIVE (Neg); LEUKOCYTE ESTERASE ,URINE NEGATIVE (Neg); NITRITES, URINE NEGATIVE (Neg); OCCULT BLOOD,URINE LARGE (Neg); PROTEIN,URINE NEGATIVE (Neg); UROBILINOGEN,URINE 0.2 E.U/dL (0.2-1.0)
[2019-08-01 21:36] LABS: UA COLLECTION TYPE CLN CATCH MIDSTREAM
[2019-08-01 21:54] LABS: BACTERIA,URINE NONE SEEN /HPF (Neg); MUCUS STRANDS NONE SEEN /LPF (Neg); RBC,URINE 0-2 /HPF (0-2); SQUAMOUS EPITHELIAL CELL,UR FEW /LPF (FEW); WBC,URINE NONE SEEN /HPF (0-4)
[2019-08-02 01:50] VITALS: BP 114/52
== END 2019-08-02 01:50 | disposition short-term general hospital (02) ==
LOC: ER 18:18
DX: L02.212 Cutaneous abscess of back [any part, except buttock and flank] (principal); R32 Unspecified urinary incontinence; I10 Essential (primary) hypertension; J45.909 Unspecified asthma, uncomplicated; E11.9 Type 2 diabetes mellitus without complications; F41.9 Anxiety disorder, unspecified; R79.1 Abnormal coagulation profile; Z90.49 Acquired absence of other specified parts of digestive tract; Z98.890 Other specified postprocedural states; Z88.0 Allergy status to penicillin; Z88.5 Allergy status to narcotic agent; Z88.8 Allergy status to other drugs, medicaments and biological substances; Z79.84 Long term (current) use of oral hypoglycemic drugs; Z79.899 Other long term (current) drug therapy
CPT/HCPCS: 36415; 71045; 72131; 80053; 81001; 83605; 83735; 84145; 85025; 85610; 85730; 87040; 93005; 96365; 96372; 96375; 99285; J2270; J3490; J7030; J7060

== ENCOUNTER 2019-12-13 13:22 | Inpatient (IN) | payer MEDICAID ==
[~2019-12-13] VITALS: Ht 165.1 cm; Wt 90.9 kg
[~2019-12-13 13:22] MED LIST changes: -METF500T PO; -PANT-47 PO; -THIA100T66 PO; -TRAM100T34 PO
[2019-12-13 14:49] LABS: BASOPHILS % (AUTO) 0.3 % (0-1); EOSINOPHILS % (AUTO) 0.4 % (0-6); HEMATOCRIT 27.1 % (35.0-45.0); HEMOGLOBIN 9.3 g/dl (12.0-16.0); LYMPHOCYTES # (AUTO) 1.4 X10'3 (1.1-4.8); LYMPHOCYTES % (AUTO) 13.4 % (21-51); MEAN CORPUSCULAR HGB CONC 34.2 g/dL (33.0-36.5); MEAN CORPUSCULAR VOLUME 93.6 FL (78-98); MEAN PLATELET VOLUME 7.4 FL (7.4-10.4); MONOCYTES # (AUTO) 1.1 X10'3 (0-0.9); MONOCYTES % (AUTO) 9.9 % (2-12); NEUTROPHILS # (AUTO) 8.1 X10'3 (1.8-7.7); PLATELET COUNT 224 X10'3 (140-440); RED BLOOD COUNT 2.89 X10'6 (4.20-5.60); RED CELL DISTRIBUTION WIDTH 14.2 % (11.5-14.5); WHITE BLOOD COUNT 10.6 X10'3 (4.5-11.0)
[2019-12-13] MEDS ORDERED: normal saline 1000ML IV soln IV ONE (14:55)
[2019-12-13 15:02] LABS: PARTIAL THROMBOPLASTIN TIME 29 SECONDS (22-32)
[2019-12-13] MEDS ORDERED: clindamycin 600mg/D5W 50ml 50 ML IV ONE (15:15)
[2019-12-13 15:29] LABS: ALBUMIN 2.2 G/DL (3.4-5.0); ANION GAP 8 (8-16); BILIRUBIN,TOTAL 0.9 MG/DL (0.1-1.0); BLOOD UREA NITROGEN 16 MG/DL (7-18); BUN/CREATININE RATIO 9.5 (6.6-38.0); CALCIUM 8.2 MG/DL (8.5-10.1); CHLORIDE 100 MMOL/L (99-107); CREATININE 1.68 MG/DL (0.40-0.90); GLUCOSE 255 MG/DL (70-104); POTASSIUM 3.8 MMOL/L (3.5-5.1); SODIUM 133 MMOL/L (135-145); TOTAL CARBON DIOXIDE 25.5 MMOL/L (24-32); TOTAL PROTEIN 7.8 G/DL (6.4-8.2); eGFR 32 ML/MIN
[2019-12-13 15:30] LABS: ALANINE AMINOTRANSFERASE 41 U/L (12-78); ALBUMIN/GLOBULIN RATIO 0.4 (1.1-1.5); ALKALINE PHOSPHATASE 146 IU/L (46-116); ASPARTATE AMINO TRANSFERASE 73 U/L (10-37)
[2019-12-13 15:33] LABS: CLARITY,URINE SLIGHTLY CLOUDY (Clear); COLOR,URINE BROWN (Yellow)
[2019-12-13 15:34] LABS: UA COLLECTION TYPE CLN CATCH MIDSTREAM
[2019-12-13 15:41] LABS: BACTERIA,URINE 1+ /HPF (Neg); MUCUS STRANDS FEW /LPF (Neg); RBC,URINE TNTC /HPF (0-2); SQUAMOUS EPITHELIAL CELL,UR FEW /LPF (FEW); WBC CLUMPS,URINE FEW /HPF (NEGATIVE)
[2019-12-13] MEDS ORDERED: POTA10CA44 PO (15:57)
[2019-12-13] MEDS ORDERED: METF-438 PO (15:57)
[2019-12-13] MEDS ORDERED: OMEP20CA15 PO (15:57)
[2019-12-13] MEDS ORDERED: OMEP-50 PO (15:57)
[2019-12-13] MEDS ORDERED: potassium Cl 20 mEq SR tablet PO PRN ×2 (16:10)
[2019-12-13] MEDS ORDERED: magnesium 2GM in 50ml NS 50 ML IV PRN (16:10)
[2019-12-13] MEDS ORDERED: magnesium Cl slow-release 64mg tablet PO PRN (16:10)
[2019-12-13] MEDS ORDERED: potassium CL 10mEq/100ml bag 100 ML IV PRN ×2 (16:10)
[2019-12-13] MEDS ORDERED: acetaminophen 325mg tablet PO PRN ×2 (16:10)
[2019-12-13] MEDS ORDERED: ondansetron/PF 4mg/2ml inj IV PRN (16:10)
[2019-12-13] MEDS ORDERED: magnesium 4gm in 100ml NS 100 ML IV PRN (16:10)
[2019-12-13] MEDS ORDERED: CEPH-572 PO (16:32)
[2019-12-13 16:37] LABS: HEMOGLOBIN A1C 9.1 % (4.5-6.2)
[2019-12-13] MEDS: doxycycline inj 100 MG in normal saline 100ml IV soln 100 ML IV SCH (16:45)
[2019-12-13 18:30] VITALS: BP 163/72
[2019-12-13] MEDS ORDERED: MESSAGE TO PHARMACY PO ONE (18:35)
[2019-12-13] MEDS ORDERED: insulin Lispro (HumaLOG) vial - multi-dose SQ SCH (18:35)
[2019-12-13] MEDS ORDERED: glucagon, human recombinant 1mg kit SUBCUT PRN (18:35)
[2019-12-13] MEDS ORDERED: dextrose 50%-water 50ml dispensing syringe IV PRN ×2 (18:35)
[2019-12-13] MEDS ORDERED: dextrose ORAL solution 15 GM/59 ML bottle PO PRN ×2 (18:35)
[2019-12-13] MEDS ORDERED: albuterol 2.5 MG/3 ML nebule NEB PRN (19:05)
[2019-12-13 19:41] LABS: URINE AMPHETAMINE SCREEN POSITIVE (Neg); URINE BARBITUATE SCREEN NEGATIVE (Neg); URINE BENZODIAZEPINES SCREEN NEGATIVE (Neg); URINE CANNABINOID SCREEN NEGATIVE (Neg); URINE COCAINE SCREEN NEGATIVE (Neg); URINE METHADONE SCREEN NEGATIVE (Neg); URINE OPIATE SCREEN NEGATIVE (Neg); URINE PHENCYCLIDINE SCREEN NEGATIVE (Neg)
[2019-12-13] MEDS: normal saline 1000ml 1,000 ML IV SCH (19:57)
[2019-12-13] MEDS: heparin, porcine 5000 units/ml vial SQ SCH (19:58)
[2019-12-13] MEDS: propranolol 10mg tablet PO SCH (19:58)
[2019-12-13] MEDS: docusate sod 100mg capsule PO SCH (19:58)
[2019-12-13] MEDS: HYDROcodone/acetaminophen 5mg/325mg tablet PO PRN (19:59)
[2019-12-13] MEDS: K and/or MAG REPLACEMENT MC SCH (20:02)
[2019-12-13] MEDS ORDERED: temazepam 15mg capsule PO PRN (21:00)
[2019-12-13] MEDS: insulin glargine (Lantus) pen - multi-dose SQ SCH (21:00)
[2019-12-13 22:08] VITALS: BP 119/52
[2019-12-14 02:00] VITALS: BP 137/72
[2019-12-14] MEDS: normal saline 1000ml 1,000 ML IV SCH ×3 (02:06→21:40)
[2019-12-14 06:00] VITALS: BP 108/60
--- NOTE | 2019-12-14 06:29 | NUR ---
Problems reprioritized. Patient report given, questions answered & plan of care reviewed with Valentin REGALADO.
[2019-12-14 06:31] LABS: BASOPHILS # (AUTO) 0.1 X10'3 (0-0.2); BASOPHILS % (AUTO) 0.7 % (0-1); EOSINOPHILS # (AUTO) 0.1 X10'3 (0-0.9); EOSINOPHILS % (AUTO) 1.7 % (0-6); HEMATOCRIT 24.8 % (35.0-45.0); HEMOGLOBIN 8.5 g/dl (12.0-16.0); LYMPHOCYTES # (AUTO) 2.2 X10'3 (1.1-4.8); LYMPHOCYTES % (AUTO) 26.3 % (21-51); MEAN CORPUSCULAR HEMOGLOBIN 32.5 PG (27.0-31.0); MEAN CORPUSCULAR HGB CONC 34.2 g/dL (33.0-36.5); MEAN CORPUSCULAR VOLUME 95.1 FL (78-98); MEAN PLATELET VOLUME 7.8 FL (7.4-10.4); MONOCYTES # (AUTO) 0.8 X10'3 (0-0.9); MONOCYTES % (AUTO) 9.6 % (2-12); NEUTROPHILS # (AUTO) 5.3 X10'3 (1.8-7.7); NEUTROPHILS % (AUTO) 61.7 % (42-75); PLATELET COUNT 180 X10'3 (140-440); RED BLOOD COUNT 2.61 X10'6 (4.20-5.60); RED CELL DISTRIBUTION WIDTH 14.3 % (11.5-14.5); WHITE BLOOD COUNT 8.5 X10'3 (4.5-11.0)
--- NOTE | 2019-12-14 06:34 | NUR ---
Patient in room PCU 3016. I have received report from Henrry and had the opportunity to ask questions and assume patient care.
[2019-12-14 06:51] LABS: ALANINE AMINOTRANSFERASE 36 U/L (12-78); ALBUMIN 1.9 G/DL (3.4-5.0); ALBUMIN/GLOBULIN RATIO 0.4 (1.1-1.5); ALKALINE PHOSPHATASE 125 IU/L (46-116); ANION GAP 8 (8-16); ASPARTATE AMINO TRANSFERASE 63 U/L (10-37); BILIRUBIN,TOTAL 1.1 MG/DL (0.1-1.0); BLOOD UREA NITROGEN 20 MG/DL (7-18); BUN/CREATININE RATIO 9.6 (6.6-38.0); CALCIUM 7.6 MG/DL (8.5-10.1); CHLORIDE 105 MMOL/L (99-107); CREATININE 2.09 MG/DL (0.40-0.90); GLUCOSE 133 MG/DL (70-104); MAGNESIUM 1.6 MG/DL (1.5-2.4); POTASSIUM 4.1 MMOL/L (3.5-5.1); SODIUM 136 MMOL/L (135-145); TOTAL PROTEIN 7.3 G/DL (6.4-8.2); eGFR 25 ML/MIN
[2019-12-14] MEDS: K and/or MAG REPLACEMENT MC SCH ×2 (06:57→20:00)
[2019-12-14] MEDS: doxycycline inj 100 MG in normal saline 100ml IV soln 100 ML IV SCH (07:21)
[2019-12-14] MEDS: folic acid 1mg tablet PO SCH (07:22)
[2019-12-14] MEDS: docusate sod 100mg capsule PO SCH ×2 (07:22→20:39)
[2019-12-14] MEDS: propranolol 10mg tablet PO SCH ×2 (07:22→20:39)
[2019-12-14] MEDS: pantoprazole 40mg Tablet.DR PO SCH (07:22)
[2019-12-14] MEDS: HYDROcodone/acetaminophen 5mg/325mg tablet PO PRN ×3 (07:22→17:12)
[2019-12-14] MEDS: heparin, porcine 5000 units/ml vial SQ SCH ×2 (07:23→20:41)
[2019-12-14 11:00] VITALS: BP 116/65
--- NOTE | 2019-12-14 12:57 | NUR ---
DM consult: Pt with A1c 9.1% seen at bedside. 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 Pt initially states she takes her DM medications per rx which, per pt, includes Metformin BID, long acting insulin HS, and short acting insulin based on BG levels prior to PO intake, however when further questioned about how she doses short acting insulin if she doesn't check her BG levels pt states she will usually withhold short acting insulin d/t not knowing what her BG levels are. RD encouraged pt to check her BG levels and take her medications per rx. Pt reports a family member with diabetes has been encouraging her to increase her level of activity and keep and food log to assess BG level response to PO intake. Pt provided with written and verbal DM education with encouragement for better managing diabetes. Pt states she has increased whole grain intake and decreased overall carb intake. Pt admitted with cellulitis, written and verbal protein education also provided. Pt endorses a good appetite, states shellfish is only food allergy, and denies difficulty chewing/swallowing or constipation/diarrhea. RD contact information provided. Will continue to follow. Addendum: 12/14/19 at [address] Amended: Links added.
[2019-12-14] MEDS ORDERED: DOXYCYCLINE 100MG CAPSULE PO SCH (17:30)
[2019-12-14 18:00] VITALS: BP 115/64
--- NOTE | 2019-12-14 18:32 | NUR ---
Problems reprioritized. Patient report given, questions answered & plan of care reviewed with Janet.
--- NOTE | 2019-12-14 18:41 | NUR ---
Patient in room PCU 3017. I have received report from Valentin REGALADO and had the opportunity to ask questions and assume patient care.
[2019-12-14] MEDS: lactobacillus rhamnosus 10,000 MMU CELLS/CAPSULE PO SCH (20:40)
[2019-12-14] MEDS: insulin glargine (Lantus) pen - multi-dose SQ SCH (21:00)
[2019-12-14 22:00] VITALS: BP 117/72
[2019-12-14] MEDS: HYDROcodone/acetaminophen 10/325mg tab PO PRN (22:47)
[2019-12-15 02:00] VITALS: BP 114/51
[2019-12-15] MEDS: HYDROcodone/acetaminophen 10/325mg tab PO PRN ×3 (04:47→18:58)
[2019-12-15 06:03] LABS: BASOPHILS % (AUTO) 0.5 % (0-1); EOSINOPHILS # (AUTO) 0.1 X10'3 (0-0.9); EOSINOPHILS % (AUTO) 1.5 % (0-6); HEMATOCRIT 22.3 % (35.0-45.0); HEMOGLOBIN 7.6 g/dl (12.0-16.0); LYMPHOCYTES # (AUTO) 1.7 X10'3 (1.1-4.8); LYMPHOCYTES % (AUTO) 27.1 % (21-51); MEAN CORPUSCULAR VOLUME 94.2 FL (78-98); MONOCYTES # (AUTO) 0.5 X10'3 (0-0.9); MONOCYTES % (AUTO) 8.6 % (2-12); NEUTROPHILS % (AUTO) 62.3 % (42-75); PLATELET COUNT 160 X10'3 (140-440); RED BLOOD COUNT 2.36 X10'6 (4.20-5.60); RED CELL DISTRIBUTION WIDTH 14.5 % (11.5-14.5); WHITE BLOOD COUNT 6.4 X10'3 (4.5-11.0)
[2019-12-15 06:05] LABS: ALANINE AMINOTRANSFERASE 30 U/L (12-78); ALBUMIN 1.8 G/DL (3.4-5.0); ALBUMIN/GLOBULIN RATIO 0.3 (1.1-1.5); ALKALINE PHOSPHATASE 123 IU/L (46-116); ANION GAP 8 (8-16); ASPARTATE AMINO TRANSFERASE 47 U/L (10-37); BILIRUBIN,TOTAL 0.6 MG/DL (0.1-1.0); BLOOD UREA NITROGEN 35 MG/DL (7-18); CALCIUM 7.9 MG/DL (8.5-10.1); CHLORIDE 104 MMOL/L (99-107); CREATININE 3.19 MG/DL (0.40-0.90); GLUCOSE 142 MG/DL (70-104); MAGNESIUM 1.6 MG/DL (1.5-2.4); SODIUM 134 MMOL/L (135-145); TOTAL CARBON DIOXIDE 21.7 MMOL/L (24-32); TOTAL PROTEIN 7.3 G/DL (6.4-8.2); eGFR 15 ML/MIN
--- NOTE | 2019-12-15 06:35 | NUR ---
Problems reprioritized. Patient report given, questions answered & plan of care reviewed with Oral REGALADO.
--- NOTE | 2019-12-15 06:44 | NUR ---
Patient in room PCU 3017. I have received report from Janet REGALADO and had the opportunity to ask questions and assume patient care.
[2019-12-15 07:00] VITALS: BP 108/57
[2019-12-15] MEDS ORDERED: levoFLOXACIN-Levaquin 500mg/D5 100 ML IV SCH (08:00)
[2019-12-15] MEDS: K and/or MAG REPLACEMENT MC SCH ×2 (08:00→20:03)
[2019-12-15] MEDS: propranolol 10mg tablet PO SCH ×2 (08:54→19:32)
[2019-12-15] MEDS: heparin, porcine 5000 units/ml vial SQ SCH ×2 (08:54→19:32)
[2019-12-15] MEDS: lactobacillus rhamnosus 10,000 MMU CELLS/CAPSULE PO SCH ×2 (08:54→19:31)
[2019-12-15] MEDS: pantoprazole 40mg Tablet.DR PO SCH (08:54)
[2019-12-15] MEDS: docusate sod 100mg capsule PO SCH ×2 (08:54→19:31)
[2019-12-15] MEDS: folic acid 1mg tablet PO SCH (08:54)
[2019-12-15 11:00] VITALS: BP 106/55
[2019-12-15 12:33] LABS: % IRON SATURATION 23 % (11-46); IRON 34 UG/DL (49-151); TOTAL IRON BINDING CAPACITY 151 UG/DL (259-388)
[2019-12-15 15:00] VITALS: BP 108/58
[2019-12-15 18:00] VITALS: BP 110/53
--- NOTE | 2019-12-15 18:18 | NUR ---
Problems reprioritized. Patient report given, questions answered & plan of care reviewed with Henrry REGALADO.
--- NOTE | 2019-12-15 18:24 | NUR ---
Patient in room PCU 3017. I have received report from Rosy REGALADO and had the opportunity to ask questions and assume patient care.
[2019-12-15] MEDS: normal saline 1000ml 1,000 ML IV SCH (18:40)
[2019-12-15] MEDS: levoFLOXACIN 250mg tablet PO SCH (19:31)
[2019-12-15] MEDS: insulin glargine (Lantus) pen - multi-dose SQ SCH (21:00)
[2019-12-15 22:00] VITALS: BP 114/73
[2019-12-16] MEDS: HYDROcodone/acetaminophen 10/325mg tab PO PRN ×4 (01:49→22:20)
[2019-12-16 02:00] VITALS: BP 119/58
[2019-12-16 05:58] LABS: BASOPHILS % (AUTO) 0.7 % (0-1); EOSINOPHILS # (AUTO) 0.1 X10'3 (0-0.9); EOSINOPHILS % (AUTO) 1.5 % (0-6); HEMATOCRIT 22.9 % (35.0-45.0); HEMOGLOBIN 7.8 g/dl (12.0-16.0); LYMPHOCYTES # (AUTO) 1.7 X10'3 (1.1-4.8); LYMPHOCYTES % (AUTO) 25.7 % (21-51); MEAN CORPUSCULAR HGB CONC 34.1 g/dL (33.0-36.5); MEAN CORPUSCULAR VOLUME 93.8 FL (78-98); MEAN PLATELET VOLUME 8.1 FL (7.4-10.4); MONOCYTES # (AUTO) 0.6 X10'3 (0-0.9); MONOCYTES % (AUTO) 8.9 % (2-12); NEUTROPHILS # (AUTO) 4.2 X10'3 (1.8-7.7); NEUTROPHILS % (AUTO) 63.2 % (42-75); PLATELET COUNT 158 X10'3 (140-440); RED BLOOD COUNT 2.44 X10'6 (4.20-5.60); RED CELL DISTRIBUTION WIDTH 14.3 % (11.5-14.5); WHITE BLOOD COUNT 6.7 X10'3 (4.5-11.0)
--- NOTE | 2019-12-16 06:10 | NUR ---
Patient in room PCU 3017. I have received report from Henrry REGALADO and had the opportunity to ask questions and assume patient care.
--- NOTE | 2019-12-16 06:18 | NUR ---
Problems reprioritized. Patient report given, questions answered & plan of care reviewed with Rosy REGALADO.
[2019-12-16 06:33] LABS: ALANINE AMINOTRANSFERASE 29 U/L (12-78); ALBUMIN 1.8 G/DL (3.4-5.0); ALBUMIN/GLOBULIN RATIO 0.3 (1.1-1.5); ALKALINE PHOSPHATASE 127 IU/L (46-116); ANION GAP 10 (8-16); ASPARTATE AMINO TRANSFERASE 45 U/L (10-37); BILIRUBIN,TOTAL 0.6 MG/DL (0.1-1.0); BLOOD UREA NITROGEN 44 MG/DL (7-18); BUN/CREATININE RATIO 11.4 (6.6-38.0); CALCIUM 7.7 MG/DL (8.5-10.1); CHLORIDE 104 MMOL/L (99-107); CREATININE 3.87 MG/DL (0.40-0.90); GLUCOSE 105 MG/DL (70-104); MAGNESIUM 1.7 MG/DL (1.5-2.4); POTASSIUM 4.3 MMOL/L (3.5-5.1); SODIUM 133 MMOL/L (135-145); TOTAL CARBON DIOXIDE 18.8 MMOL/L (24-32); TOTAL PROTEIN 7.4 G/DL (6.4-8.2); eGFR 12 ML/MIN
[2019-12-16 07:00] VITALS: BP 111/56
[2019-12-16] MEDS: K and/or MAG REPLACEMENT MC SCH ×2 (08:00→20:00)
[2019-12-16] MEDS: heparin, porcine 5000 units/ml vial SQ SCH ×3 (08:00→20:23)
[2019-12-16] MEDS: pantoprazole 40mg Tablet.DR PO SCH (08:33)
[2019-12-16] MEDS: lactobacillus rhamnosus 10,000 MMU CELLS/CAPSULE PO SCH ×2 (08:34→20:23)
[2019-12-16] MEDS: folic acid 1mg tablet PO SCH (08:34)
[2019-12-16] MEDS: propranolol 10mg tablet PO SCH ×2 (08:34→20:23)
[2019-12-16] MEDS: docusate sod 100mg capsule PO SCH ×2 (08:34→20:22)
[2019-12-16 11:00] VITALS: BP 134/70
[2019-12-16] MEDS: levoFLOXACIN 250mg tablet PO SCH (11:15)
[2019-12-16] MEDS: normal saline 1000ml 1,000 ML IV SCH (14:40)
[2019-12-16 15:00] VITALS: BP 115/51
[2019-12-16] MEDS: morphine 2 MG/ML inj. syringe IV PRN (16:24)
[2019-12-16] MEDS: DOXYCYCLINE 100MG CAPSULE PO SCH (17:23)
[2019-12-16 18:00] VITALS: BP 126/67
--- NOTE | 2019-12-16 18:30 | NUR ---
Patient in room PCU 3017. I have received report from SABINE ALONZO and had the opportunity to ask questions and assume patient care.
--- NOTE | 2019-12-16 18:33 | NUR ---
Problems reprioritized. Patient report given, questions answered & plan of care reviewed with Antony REGALADO.
[2019-12-16] MEDS: insulin glargine (Lantus) pen - multi-dose SQ SCH (21:00)
[2019-12-16 22:00] VITALS: BP 109/47
[2019-12-16] MEDS: diphenhydrAMINE 25mg capsule PO PRN (23:18)
[2019-12-17 02:00] VITALS: BP 123/63
[2019-12-17] MEDS: normal saline 1000ml 1,000 ML IV SCH (04:48)
[2019-12-17] MEDS: HYDROcodone/acetaminophen 10/325mg tab PO PRN (04:48)
[2019-12-17] MEDS: diphenhydrAMINE 25mg capsule PO PRN (06:00)
--- NOTE | 2019-12-17 06:26 | NUR ---
Problems reprioritized. Patient report given, questions answered & plan of care reviewed with SABINE HERNANDEZ.
--- NOTE | 2019-12-17 06:27 | NUR ---
Patient in room PCU 3017B. I have received report from Dominga REGALADO and had the opportunity to ask questions and assume patient care.
[2019-12-17 06:30] VITALS: BP 106/57
[2019-12-17] MEDS: DOXYCYCLINE 100MG CAPSULE PO SCH (07:45)
[2019-12-17] MEDS: folic acid 1mg tablet PO SCH (07:46)
[2019-12-17] MEDS: propranolol 10mg tablet PO SCH (07:46)
[2019-12-17] MEDS: pantoprazole 40mg Tablet.DR PO SCH (07:46)
[2019-12-17] MEDS: docusate sod 100mg capsule PO SCH (07:46)
[2019-12-17] MEDS: heparin, porcine 5000 units/ml vial SQ SCH (07:47)
[2019-12-17] MEDS: lactobacillus rhamnosus 10,000 MMU CELLS/CAPSULE PO SCH (07:47)
[2019-12-17] MEDS: K and/or MAG REPLACEMENT MC SCH (08:00)
[2019-12-17] MEDS: morphine 2 MG/ML inj. syringe IV PRN (08:44)
[2019-12-17 09:00] LABS: BASOPHILS % (AUTO) 0.7 % (0-1); EOSINOPHILS # (AUTO) 0.1 X10'3 (0-0.9); EOSINOPHILS % (AUTO) 1.8 % (0-6); HEMATOCRIT 24.3 % (35.0-45.0); HEMOGLOBIN 8.2 g/dl (12.0-16.0); LYMPHOCYTES # (AUTO) 1.4 X10'3 (1.1-4.8); LYMPHOCYTES % (AUTO) 22.6 % (21-51); MEAN CORPUSCULAR HEMOGLOBIN 32.2 PG (27.0-31.0); MEAN CORPUSCULAR HGB CONC 33.7 g/dL (33.0-36.5); MEAN CORPUSCULAR VOLUME 95.5 FL (78-98); MEAN PLATELET VOLUME 7.9 FL (7.4-10.4); MONOCYTES # (AUTO) 0.5 X10'3 (0-0.9); MONOCYTES % (AUTO) 8.5 % (2-12); NEUTROPHILS # (AUTO) 4.2 X10'3 (1.8-7.7); NEUTROPHILS % (AUTO) 66.4 % (42-75); PLATELET COUNT 154 X10'3 (140-440); RED BLOOD COUNT 2.55 X10'6 (4.20-5.60); RED CELL DISTRIBUTION WIDTH 14.2 % (11.5-14.5); WHITE BLOOD COUNT 6.4 X10'3 (4.5-11.0)
[2019-12-17 09:09] LABS: ALANINE AMINOTRANSFERASE 25 U/L (12-78); ALBUMIN 1.8 G/DL (3.4-5.0); ALBUMIN/GLOBULIN RATIO 0.3 (1.1-1.5); ALKALINE PHOSPHATASE 127 IU/L (46-116); ANION GAP 9 (8-16); ASPARTATE AMINO TRANSFERASE 46 U/L (10-37); BILIRUBIN,TOTAL 0.6 MG/DL (0.1-1.0); BLOOD UREA NITROGEN 57 MG/DL (7-18); BUN/CREATININE RATIO 11.5 (6.6-38.0); CALCIUM 7.7 MG/DL (8.5-10.1); CHLORIDE 103 MMOL/L (99-107); CREATININE 4.94 MG/DL (0.40-0.90); GLUCOSE 138 MG/DL (70-104); MAGNESIUM 1.7 MG/DL (1.5-2.4); POTASSIUM 4.8 MMOL/L (3.5-5.1); SODIUM 133 MMOL/L (135-145); TOTAL CARBON DIOXIDE 20.7 MMOL/L (24-32); TOTAL PROTEIN 7.7 G/DL (6.4-8.2); eGFR 9 ML/MIN
[2019-12-17 11:00] VITALS: BP 105/54
[2019-12-17] MEDS: levoFLOXACIN 250mg tablet PO SCH (11:03)
--- NOTE | 2019-12-17 14:30 | NUR ---
Per MD, patient stable for transfer to [facility]. Transfer packet completed and report called to LORE Jang. All questions answered. Wound care done with new dressing placed and discharge wound photos taken. IV removed with catheter intact. All belongings sent with patient. Patient escorted from hospital in wheelchair accompanied by natalia cargo and driven to [facility] via [employer].
== END 2019-12-17 14:32 | DRG 383 ==
LOC: EEVIPCON 13:23 → ER 13:23 → ED HOLD 16:06 → PCU 3S 18:58
PROVIDERS: ADMIT Internal Medicine; ATTEND Internal Medicine
DX: L03.115 Cellulitis of right lower limb (principal); N17.9 Acute kidney failure, unspecified; E11.22 Type 2 diabetes mellitus with diabetic chronic kidney disease; E11.65 Type 2 diabetes mellitus with hyperglycemia; J44.0 Chronic obstructive pulmonary disease with (acute) lower respiratory infection; N18.9 Chronic kidney disease, unspecified; D64.9 Anemia, unspecified; F15.90 Other stimulant use, unspecified, uncomplicated; I12.9 Hypertensive chronic kidney disease with stage 1 through stage 4 chronic kidney disease, or unspecified chronic kidney disease; F17.200 Nicotine dependence, unspecified, uncomplicated; Z88.8 Allergy status to other drugs, medicaments and biological substances; Z88.6 Allergy status to analgesic agent; Z88.1 Allergy status to other antibiotic agents; Z88.0 Allergy status to penicillin; Z90.49 Acquired absence of other specified parts of digestive tract
CPT/HCPCS: 36415; 71045; 76937; 80053; 80305; 81001; 82948; 83036; 83540; 83550; 83605; 83735; 84145; 85025; 85610; 85730; 87040; 87081; 87088; 94760; 97110; 97116; 97161; 97530; 97535; 99285; G0378; J1644; J1815; J2270; J3490; J7030; Q0163